=== PATIENT | female | born 1970 | race Caucasian/White ===

== ENCOUNTER → 2017-09-16 | Outpatient (CLI) | payer OTHER | LOC: OD 11:12 | PROVIDERS: ATTEND Otolaryngology | DX: H81.49 Vertigo of central origin, unspecified ear (principal) | CPT/HCPCS: 36415; 82785; 86003 ==

== ENCOUNTER → 2017-11-27 | Outpatient (CLI) | payer MEDICAID, OTHER ==
--- NOTE | 2017-11-28 09:46 | RADIOLOGY REPORT (SQ) ---
EXAM DESCRIPTION: MRI HEAD COMBO COMPLETED DATE/TIME: 11/27/2017 5:20 pm REASON FOR STUDY: SENSORINEURAL HEARING LOSS H90.3 SENSORINEURAL HEARING LOSS, BILATERAL vertigo, t innitus COMPARISON: None. TECHNIQUE: Multiplanar imaging includes noncontrasted T1, T2, FLAIR, diffusion with ADC map and post gadolinium contrast T1 sequences. Images stored on PACS. Additional thin section axial and coronal pre and post contrast T1, and axial thin-section T2 images through the internal auditory canals and inner ear structures were obtained. CONTRAST TYPE AND DOSE: 20 mL Dotarem. RENAL FUNCTION: None required. The patient is less than 50 years old. LIMITATIONS: Mild motion artifact on some of the postcontrast pulse sequences FINDINGS: ANATOMY: No developmental anomalies. Normal vascular flow voids. Pituitary fossa normal. CSF SPACES: Normal in size and contour. No hemorrhage. CEREBRUM: Sulci and gyri normal in size and contour. Normal white matter signal on FLAIR imaging. No evidence of hemorrhage, mass, or extraaxial fluid collection. No abnormal enhancement post contrast. POSTERIOR FOSSA: No signal alteration. No hemorrhage. No edema, masses, or mass effect. Internal auditory canals, cerebellopontine angles, mastoids normal. No abnormal enhancement post con trast. Right AICA loop in the internal auditory canal axial, best shown on thin-section T2 images 36 -40 DIFFUSION IMAGING: Negative for acute or subacute infarction. ORBITS: No masses. Globes normal. PARANASAL SINUSES: No fluid levels. Mucosa normal. OTHER: No other significant finding. IMPRESSION: NORMAL MRI OF THE BRAIN WITHOUT AND WITH INTRAVENOUS GADOLINIUM CONTRAST. EVIDENCE OF ACUTE STROKE: NO. TECHNICAL DOCUMENTATION: JOB ID: [id number] [employer]- All Rights Reserved Reading location - IP/workstation name: [email or web address]
== END ==
LOC: RAD 15:41
PROVIDERS: ATTEND Otolaryngology
DX: H90.3 Sensorineural hearing loss, bilateral (principal)
CPT/HCPCS: 70553; A9576

== ENCOUNTER 2018-01-29 19:34 | Emergency (ER) | payer OTHER ==
--- NOTE | 2018-01-29 21:25 | RADIOLOGY REPORT (SQ) ---
EXAM DESCRIPTION: XR HAND 3 OR MORE VIEWS COMPLETED DATE/TME: 01/29/2018 19:57 CLINICAL HISTORY: 47 years, Female, pain Findings: Bony alignment is anatomic. No fracture or dislocation. Mild soft tissue injury to second digit is noted. No radiopaque foreign body. IMPRESSION: No evidence for acute fracture or radiopaque foreign body.
[2018-01-29] MEDS ORDERED: LIDOCAINE 1%/EPINEPHRINE INJ 20 ML VIAL INJ ONE (21:57)
--- NOTE | 2018-01-29 22:19 | ER Document Report ---
ED General - General Chief Complaint: Laceration Stated Complaint: RIGHT HAND PAIN Time Seen by Provider: 01/29/18 21:30 Notes: Patient is a 48-year-old female, currently up-to-date on her tetanus who presents with a laceration to the ulnar side of the fifth digit of the right hand just above the level of the MCP. She states this occurred while she was cleaning out a dish. She states that it has been bleeding heavily since the laceration occurred. She notes a dull, throbbing, constant pain to the area. Nothing improves or worsens her symptoms. She is right-hand dominant. No history of similar injuries in the past. She has not seen her general doctor regarding today's concerns. TRAVEL OUTSIDE OF THE [place] IN LAST 30 DAYS: No - Related Data Allergies/Adverse Reactions: fluoxetine HCl [From Prozac] Allergy (Verified 03/24/15 09:55) Hives gabapentin [Gabapentin] Allergy (Verified 03/24/15 09:55) BURNING IN VEINS Past Medical History - General Information source: Patient - Social History Smoking Status: Never Smoker Frequency of alcohol use: None Drug Abuse: None Lives with: Spouse/Significant other Family History: Reviewed & Not Pertinent - Past Medical History Cardiac Medical History: Denies: Hx Coronary Artery Disease, Hx Heart Attack, Hx Hypertension Pulmonary Medical History: Reports: Hx Asthma, Hx Pneumonia - hx of 2009 Denies: Hx Bronchitis - hx of 03/10/15, Dr. Comer made aware, no new orders received, Hx COPD, Hx Tuberculosis Neurological Medical History: Denies: Hx Cerebrovascular Accident, Hx Seizures Endocrine Medical History: Reports: Hx Diabetes Mellitus Type 2 GI Medical History: Reports: Hx Gastroesophageal Reflux Disease Musculoskeletal Medical History: Reports Hx Arthritis - OSTEOARTHRITIS, GENERAL Past Surgical History: Reports: Hx Section - 2, Hx Tubal Ligation. Denies: Hx Pacemaker - Immunizations Hx Diphtheria, Pertussis, Tetanus Vaccination: Yes - <10 Hx Pneumococcal Vaccination: 02/06/12 Review of Systems - Review of Systems Notes: Constitutional: Negative for fever. Eyes: Negative for visual changes. ENT: Negative for facial injury Cardiovascular: Negative for chest injury. Respiratory: Negative for shortness of breath. Gastrointestinal: Negative for abdominal injury. Genitourinary: Negative for genital injury Musculoskeletal: Positive for right pinky injury Skin: Positive for laceration/abrasions. Neurological: Negative for head injury. Physical Exam - Vital signs Vitals: Temp Pulse Resp BP Pulse Ox 97.9 F 78 18 133/75 H 98 01/29/18 20:18 01/29/18 20:18 01/29/18 20:18 01/29/18 20:18 01/29/18 20:18 Interpretation: Normal Notes: PHYSICAL EXAMINATION: GENERAL: Appears uncomfortable but in no acute distress HEAD: Atraumatic, normocephalic. EYES: sclera anicteric, conjunctiva are normal. ENT: Moist mucous membranes. NECK: Normal range of motion LUNGS: Normal work of breathing HEART: 2+ radial pulses bilaterally EXTREMITIES: no pitting or edema. No cyanosis. NEUROLOGICAL: No focal neurological deficits. Moves all extremities spontaneously and on command. PSYCH: Highly anxious SKIN: Warm, Dry, normal turgor, 2.5 cm gaping laceration to the ulnar aspect of the right pinky just above the level of the MCP Course - Re-evaluation Re-evalutation: 01/29/18 22:13 Patient presents with a 2.5 cm laceration along the ulnar aspect of the fifth digit of the right hand sustained on a glass just prior to arrival. No evidence of tendinous injury. Full flexion extension at the MCP, DIP PIP including against resistance. Neurovascular intact. Patient tolerated closure of the wound after complete irrigation and debridement. At this time will discharge with return precautions and follow-up recommendations. Verbal discharge instructions given a the bedside and opportunity for questions given. Medication warnings reviewed. Patient is in agreement with this plan and has verbalized understanding of return precautions and the need for primary care follow-up in the next 1 week. - Vital Signs Vital signs: Temp Pulse Resp BP Pulse Ox 97.5 F 70 18 128/69 H 99 01/29/18 22:23 01/29/18 22:23 01/29/18 22:23 01/29/18 22:23 01/29/18 22:23 - Diagnostic Test Radiology reviewed: Image reviewed, Reports reviewed Radiology results interpreted by me: 01/30/18 04:19 Right hand x-ray: No acute fracture or retained foreign body Procedures - Laceration/Wound Repair Right 5th digit Wound length (cm): 2.5 Wound's Depth, Shape: Superficial Laceration pre-procedure: Sterile PPE donned Anesthetic type: 1% Lidocaine Volume Anesthetic (mLs): 1 Wound explored: Clean Irrigated w/ Saline (mLs): 500 Wound Debrided: Moderate Wound Repaired With: Sutures Suture Size/Type: 5:0, Prolene Number of Sutures: 4 Layer Closure?: No Post-procedure wound care: Sterile dressing applied Post-procedure NV exam normal: Yes Complications: No Discharge - Discharge Clinical Impression: Laceration of right little finger Qualifiers: Encounter type: initial encounter Damage to nail status: without damage Foreign body presence: without foreign body Qualified Code(s): S61.216A - Laceration without foreign body of right little finger without damage to nail, initial encounter Condition: Good Disposition: HOME, SELF-CARE Additional Instructions: Please return to your primary doctor, the ED, or an urgent care in 7 days for suture removal. Return immediately if you develop spreading redness around the wound, pus from the wound, worsening pain, or a fever of >100.4. Keep the area clean and dry. Wash gently with soap and water twice daily and cover with antibiotic ointment. Referrals: NISHA BURTON MD [Primary Care Provider] - Follow up as needed
[2018-01-29 22:24] VITALS: BP 128/69
== END 2018-01-29 22:29 | disposition home or self-care (01) ==
LOC: ER 19:34
DX: S61.216A Laceration without foreign body of right little finger without damage to nail, initial encounter (principal); W25.XXXA Contact with sharp glass, initial encounter; Y93.G1 Activity, food preparation and clean up; J45.909 Unspecified asthma, uncomplicated; E11.9 Type 2 diabetes mellitus without complications; Z88.8 Allergy status to other drugs, medicaments and biological substances; Z88.6 Allergy status to analgesic agent
CPT/HCPCS: 99283; 73130; 12001; J3490

== ENCOUNTER → 2018-04-27 | Outpatient (CLI) | payer OTHER ==
--- NOTE | 2018-04-27 16:19 | WOMENS IMAGING REPORT ---
EXAM DESCRIPTION: BILAT SCREENING MAMMO W/CAD COMPLETED DATE/TIME: 04/27/2018 11:10 am REASON FOR STUDY: Z12.31 SCREENING [id number] ENCNTR SCREEN MAMMOGRAM FOR MALIGNANT NEOPLASM OF BR E COMPARISON: 2012 -2013 TECHNIQUE: Standard craniocaudal and mediolateral oblique views of each breast recorded using [employer]ou[employer] l acquisition. LIMITATIONS: None. FINDINGS: RIGHT BREAST MASSES: No suspicious masses. CALCIFICATIONS: Calcifications lower outer quadrant about 7 cm deep to the nipple. ARCHITECTURAL DISTORTION: Asymmetry with architectural distortion 11 o'clock about 8 cm deep to the n ipple. DEVELOPING DENSITY: None. ASYMMETRY: See above. OTHER: No other significant findings. LEFT BREAST MASSES: No suspicious masses. CALCIFICATIONS: No new or suspicious calcifications. ARCHITECTURAL DISTORTION: None. DEVELOPING DENSITY: None. ASYMMETRY: None noted. OTHER: No other significant findings. Read with the assistance of CAD. .[facility] - R2 Cenova Version 1.3 .[facility] - R2 Cenova Version 1.3 .[facility] - R2 Cenova Version 2.4 .[facility] [place] R2 Cenova Version 2.4 .[facility] - R2 [place] [facility] Version 9.2 IMPRESSION: Abnormalities in the right breast for which true lateral, Mag compression views and pote ntial ultrasound recommended. BREAST DENSITY: b. There are scattered areas of fibroglandular density. BIRAD: 0 Incomplete: Needs Additional Imaging Evaluation and/or prior Mammograms for Comparison. RECOMMENDATION: RECOMMENDED FOLLOW-UP: See above. The patient will be contacted for additional imaging. COMMENT: The patient has been notified of the results by letter per SA requirements. Additional no tification policies are in place for contacting patient with suspicious or incomplete findings. Quality ID #225: The [employer] recommends an annual screening mammogram for women aged 40 years or over. This facility utilizes a reminder system to ensure that all patients receive reminder letters, and/or direct phone calls for appointments. This includes reminders for routine scr eening mammograms, diagnostic mammograms, or other Breast Imaging Interventions when appropriate. Th is patient will be placed in the appropriate reminder system. The [employer] (ACR) has developed recommendations for screening MRI of the breast s in certain patient populations, to be used in conjunction with mammography. Breast MRI surveillanc e may be appropriate for women with more than 20% lifetime risk of developing breast cancer as deter mined by genetic testing, significant family history of the disease, or history of mantle radiation f or Hodgkins Disease. ACR Practice Guidelines 2008. TECHNICAL DOCUMENTATION: FINDING NUMBER: (1) ASSESSMENT: (1) JOB ID: [id number] [employer]- All Rights Reserved Reading location - IP/workstation name: [email or web address]
== END ==
LOC: WI 09:25
PROVIDERS: ATTEND Internal Medicine
DX: Z12.31 Encounter for screening mammogram for malignant neoplasm of breast (principal); N64.89 Other specified disorders of breast
CPT/HCPCS: 77067

== ENCOUNTER → 2018-05-05 | Outpatient (CLI) | payer OTHER ==
--- NOTE | 2018-05-05 09:44 | WOMENS IMAGING REPORT ---
EXAM DESCRIPTION: RIGHT DIAGNOSTIC MAMMO W/CAD; U/S BREAST UNILAT LIMITED COMPLETED DATE/TIME: 05/05/2018 8:37 am; 05/05/2018 9:19 am REASON FOR STUDY: R92.2 RIGHT ASYMMETRY; R92.2 RIGHT BREAST R92.2 INCONCLUSIVE MAMMOGRAM COMPARISON: 04/27/2018 TECHNIQUE: True lateral and Mag compression views. LIMITATIONS: None. FINDINGS: BREAST: right Irregular mass at 11 o'clock with associated architectural distortion. Calcifications lower outer qu adrant have some pleomorphic features and no definite benign features. Ultrasound of the right breast demonstrates hypoechoic 1.5 cm mass with posterior shadowing correspon d to the mammographic finding. 1 cm right axillary node with minimal fatty hilum. IMPRESSION: Suspicious mass and axillary lymph node. Suspicious calcifications in different quadran t. BREAST DENSITY: b. There are scattered areas of fibroglandular density. BIRAD: 5 Highly suggestive of malignancy. Appropriate action should be taken. RECOMMENDATION: RECOMMENDED FOLLOW UP: Birads 5: Biopsy should be performed in the absence of clinic al contraindication. SPECIFIC INTERVENTION/IMAGING/CONSULTATION RECOMMENDED:The suspicious finding(s) amenable to stereo-t actic-guided vacuum assisted core biopsy of calcifications and ultrasound guided core biopsy and clip placement. COMMUNICATION:The imaging findings were not discussed with the patient. Her referring provider has be en notified of the findings. COMMENT: The patient has been notified of the results by letter per SA requirements. Additional no tification policies are in place for contacting patient with suspicious or incomplete findings. Quality ID #225: The [employer] recommends an annual screening mammogram for women aged 40 years or over. This facility utilizes a reminder system to ensure that all patients receive reminder letters, and/or direct phone calls for appointments. This includes reminders for routine scr eening mammograms, diagnostic mammograms, or other Breast Imaging Interventions when appropriate. Th is patient will be placed in the appropriate reminder system. The [employer] (ACR) has developed recommendations for screening MRI of the breast s in certain patient populations, to be used in conjunction with mammography. Breast MRI surveillanc e may be appropriate for women with more than 20% lifetime risk of developing breast cancer as deter mined by genetic testing, significant family history of the disease, or history of mantle radiation f or Hodgkins Disease. ACR Practice Guidelines 2008. TECHNICAL DOCUMENTATION: FINDING NUMBER: (1) ASSESSMENT: (1) JOB ID: [id number] [employer]- All Rights Reserved Reading location - IP/workstation name: [email or web address]
== END ==
LOC: WI 08:03
PROVIDERS: ATTEND Internal Medicine
DX: N63.13 Unspecified lump in the right breast, lower outer quadrant (principal)
CPT/HCPCS: 76642

== ENCOUNTER → 2018-05-24 | Day surgery (SDC) | payer OTHER ==
[~2018-05-24] MED LIST: LIDOCAINE 1% INJ-PF (10 MG/ML) 30 ML SDV ONE; LIDOCAINE 1%/EPINEPHRINE INJ 20 ML VIAL ONE
--- NOTE | 2018-05-26 09:06 | RADIOLOGY REPORT (SQ) ---
EXAM DESCRIPTION: STEREO BREAST BX; RIGHT DIG DX MAMMO NO CHG COMPLETED DATE/TIME: 05/24/2018 10:23 am; 05/24/2018 11:25 am REASON FOR STUDY: D48.61 NEOPLASM OF UNCERTAIN BEHAVIOR OF RIGHT BREAST; D46.61 S/P US AND STEREO BX RIGHT BREAST FOR CLIP PLACEMENT D48.61 NEOPLASM OF UNCERTAIN BEHAVIOR OF RIGHT BREAST COMPARISON: Prior mammograms 04/27/2018, 05/05/2018 TECHNIQUE: Vacuum-assisted stereotactic-guided biopsy of the calcifications of concern in the right breast 6 o'clock position. Serial progress stereotactic and single digital images acquired. PROCEDURE: The procedure was discussed with the patient, including possible complications such as bleeding, infection, nondiagnostic sample or possible findings such as atypical ductal hyperplasia wh ich would require additional surgery. Possible clip placement was explained. The patient agreed t o the procedure. The patient was placed prone on the stereotactic table. The lesion in the breast was localized ster eotactically. The skin of the breast was prepped in sterile fashion. Superficial and deep local an esthesia was provided. A small incision was made in the skin and the biopsy probe was advanced to t he target. Using the vacuum-assisted core biopsy device, multiple core specimens were obtained. Continuous low dose infusion of local anesthesia was used during the procedure. A specimen radiograph was obtained. The radiograph demonstrated calcifications of concern in the bio psy tissue. Using [id number]-[id number] technique a pellet clip was deployed at the biopsy site. Mammographic image confirmed presence of the clip. The probe was then removed and hemostasis obtained with manua l compression. A compression bandage was applied. Postoperative instructions were explained to th e patient. POST-PROCEDURE TWO VIEW DIGITAL MAMMOGRAM: An additional two view mammogram was recorded in the [facility] mammographic suite. Pellet is present at the stereotactic biopsy site. Ribbon shaped clips are present at the sonographically biopsied nodule and right axillary lymph node dictated separately. LIMITATIONS: None. FINDINGS: PATHOLOGY: Ductal carcinoma in situ CONCORDANT: Yes. POST PROCEDURE MAMMOGRAMS FOR MARKER PLACEMENT: Yes IMPRESSION: SUCCESSFUL STEREOTACTIC-GUIDED BIOPSY OF THE LESION IN THE RIGHT BREAST. BIOPSY RESULT S ARE CONCORDANT WITH IMAGING FINDINGS. BI-RADS 6 known malignancy, appropriate action should be taken FOLLOW-UP: These results were discussed by me with the patient 0800 hours 05/26/2018. She understands this is a malignant diagnosis, and that she requires further therapy NOTIFICATION: THE PATIENT HAS BEEN PERSONALLY NOTIFIED OF THE RESULTS BY THE BREAST INTERVENTIONAL TE NARAYAN. COMMENT: Patient medication list reviewed: Yes- Quality ID# [id number]:Eligible professional attests to doc umenting in the medical record they obtained, updated, or reviewed the patient's current medications. TECHNICAL DOCUMENTATION: JOB ID: [id number] [employer] All Rights Reserved Reading location - IP/workstation name: [email or web address]
--- NOTE | 2018-05-26 09:11 | WOMENS IMAGING REPORT ---
EXAM DESCRIPTION: U/S BREAST BX; U/S BREAST BX EACH ADDT'L COMPLETED DATE/TIME: 05/24/2018 11:32 am REASON FOR STUDY: D46.61 NEOPLASM OF UNCERTAIN BEHAVIOR OF RIGHT BREAST; D46.61 D48.61 NEOPLASM OF UNCERTAIN BEHAVIOR OF RIGHT BREAST COMPARISON: Prior mammograms and ultrasound 04/27/2018, 05/05/2018 TECHNIQUE: The procedure was discussed with the patient and the patient agreed to proceed. The fransico ent has a malignant appearing right axillary lymph node and a mass at the 10 to 11 o'clock position r ight breast. Both of these areas were targeted for biopsy. Right axilla: The patient was scanned and the area of interest in the right axilla 15 cm from the nipple of the rig ht breast was localized. This correlates with the area of concern on prior imaging studies. This are a was targeted for ultrasound-guided core biopsy. After sterile skin prep and 2.5 mL local lidocaine 1% for skin and deep tissue anesthesia, a 14 gauge coaxial core biopsy needle was used to obtain several cores of tissue from the lesion. Under ultras ound guidance, a ribbon clip was placed in the areas sampled. Right breast 10 to 11 o'clock position: The patient was scanned and the area of interest in the right breast 10 to 11 o'clock position, 5 cm from the nipple of the right breast was localized. This correlates with the area of concern on prior imaging studies. This area was targeted for ultrasound-guided core biopsy. After sterile skin prep and 2.5 mL local lidocaine 1% for skin and deep tissue anesthesia, a 14 gauge coaxial core biopsy needle was used to obtain several cores of tissue from the lesion. Under ultras ound guidance, a ribbon clip was placed in the areas sampled. There were no immediate post-procedure complications. MAMMOGRAM: Post-procedure two view mammogram was acquired in the digital mammogram suite. The clips w ere in the expected location. No significant hematoma. Pathology yields a diagnosis of invasive ductal carcinoma in both the right axillary lymph node and m ass at the 10 to 11 o'clock position right breast. Pathology is concordant. LIMITATIONS: None. FINDINGS: Ultrasound guided breast biopsy as described above. POST PROCEDURE MAMMOGRAMS FOR MARKER PLACEMENT: Yes IMPRESSION: ULTRASOUND-GUIDED CORE BIOPSY OF THE RIGHT AXILLARY LYMPH NODE AND RIGHT BREAST MASS YIE LDS A DIAGNOSIS OF INVASIVE DUCTAL CARCINOMA BI-RADS 6, KNOWN MALIGNANCY. APPROPRIATE ACTION SHOULD BE TAKEN COMMENT: COMMUNICATION: THIS RESULT WAS DISCUSSED WITH THE PATIENT RIB 0800 HOURS, 05/26/2018. SHE UN DERSTANDS THAT THIS IS A MALIGNANT DIAGNOSIS, AND THAT SHE REQUIRES FURTHER THERAPY. Patient medication list reviewed: Yes- Quality ID# [id number]:Eligible professional attests to documenting i n the medical record they obtained, updated, or reviewed the patient's current medications. TECHNICAL DOCUMENTATION: JOB ID: [id number] [employer]- All Rights Reserved Reading location - IP/workstation name: [email or web address]
== END ==
LOC: RAD 08:23
PROVIDERS: ATTEND Internal Medicine
DX: D05.11 Intraductal carcinoma in situ of right breast (principal); C77.3 Secondary and unspecified malignant neoplasm of axilla and upper limb lymph nodes
CPT/HCPCS: 88342 ×2; 88341 ×2; 88305 ×2; 19081; 19083; 19084; J3490 ×2

== ENCOUNTER → 2018-06-07 | Outpatient (CLI) | payer MEDICAID, OTHER ==
--- NOTE | 2018-06-07 09:15 | RADIOLOGY REPORT (SQ) ---
EXAM DESCRIPTION: CT CHEST WITH COMPLETED DATE/TIME: 06/07/2018 8:45 am REASON FOR STUDY: MALIG NEOPLM OF UPPER-INNER QUADRANT OF RIGHT FEMALE BREAST C50.211 MALIG NEOPLM OF UPPER-INNER QUADRANT OF RIGHT FEMALE COMPARISON: None. TECHNIQUE: CT scan of the chest performed using helical scanning technique with dynamic intravenous contrast injection. Images reviewed with lung, soft tissue and bone windows. Reconstructed coronal and sagittal MPR and MIP images reviewed. All images stored on PACS. All CT scanners at this facility use dose modulation, iterative reconstruction, and/or weight based d osing when appropriate to reduce radiation dose to as low as reasonably achievable (ALARA). [facility]: Dose Right [facility]: CareDose [facility]: Dose Right [facility]: Teradose 4D [facility]: [place] CONTRAST TYPE AND DOSE: 95 cc Omnipaque 350 RENAL FUNCTION: Creatinine 1.0 RADIATION DOSE: . LIMITATIONS: Subcutaneous tissues partially excluded by collimation secondary to body habitus. FINDINGS: LUNGS AND PLEURA: There are multiple small vague areas of ground-glass attenuation through out the right upper, lower and left lower lobes, largest in the right lower lobe measuring 8 mm. The se are nonspecific and likely infectious/inflammatory. No discrete solid nodules. No dense consolid ation. No pleural effusion or pneumothorax. HILAR AND MEDIASTINAL STRUCTURES: No identified masses or abnormal nodes. HEART AND VASCULAR STRUCTURES: No aneurysm or dissection. No central pulmonary emboli. No pericardi al effusion. HARDWARE: None in the chest. UPPER ABDOMEN: See separate report of the CT of the abdomen. THYROID AND OTHER SOFT TISSUES: No masses. No adenopathy. BONES: No significant finding. OTHER: No other significant finding. IMPRESSION: 1. No definite evidence of metastatic disease within the thorax. 2. Subtle small areas of ground-glass attenuation in both lungs, likely infectious/inflammatory. TECHNICAL DOCUMENTATION: JOB ID: [id number] Quality ID # [id number]: Final reports with documentation of one or more dose reduction techniques (e.g., Au tomated exposure control, adjustment of the mA and/or kV according to patient size, use of iterative reconstruction technique) 2010 [employer]- All Rights Reserved Reading location - IP/workstation name: [email or web address]
--- NOTE | 2018-06-07 09:20 | RADIOLOGY REPORT (SQ) ---
EXAM DESCRIPTION: CT ABD/PELVIS WITH IV ONLY COMPLETED DATE/TIME: 06/07/2018 8:45 am REASON FOR STUDY: MALIG NEOPLM OF UPPER-INNER QUADRANT OF RIGHT FEMALE BREAST C50.211 MALIG NEOPLM OF UPPER-INNER QUADRANT OF RIGHT FEMALE COMPARISON: 11/30/2015 TECHNIQUE: CT scan of the abdomen and pelvis performed using helical scanning technique with dynamic intravenous contrast injection. No oral contrast. Images reviewed with lung, soft tissue, and bone windows. Reconstructed coronal and sagittal MPR images reviewed. Delayed images for evaluation of the urinary system also acquired. All images stored on PACS. All CT scanners at this facility use dose modulation, iterative reconstruction, and/or weight based d osing when appropriate to reduce radiation dose to as low as reasonably achievable (ALARA). [facility]: Dose Right [facility]: CareDose [facility]: Dose Right [facility]: Teradose 4D [facility]: Uptake CONTRAST TYPE AND DOSE: contrast/concentration: Isovue 350.00 mg/ml; Total Contrast Delivered: 95.0 ml; Total Saline Delivered: 71.0 ml 95 cc Omnipaque 350 RENAL FUNCTION: Creatinine 1.0 RADIATION DOSE: CT Rad equipment meets quality standard of care and radiation dose reduction techniq ues were employed. CTDIvol: 23.5 - 30.6 mGy. DLP: 4189 mGy-cm.. LIMITATIONS: None. FINDINGS: LOWER CHEST: See separate report of the CT of the chest. LIVER: Scattered calcified granuloma. No discrete liver lesions. No intrahepatic ductal dilation. Likely hepatic steatosis. SPLEEN: Enlarged measuring 15 cm with multiple scattered calcified granuloma. PANCREAS: No masses. No significant calcifications. No adjacent inflammation or peripancreatic fluid collections. Pancreatic duct not dilated. GALLBLADDER: Surgically absent. ADRENAL GLANDS: No significant masses or asymmetry. RIGHT KIDNEY AND URETER: No solid masses. No significant calcifications. No hydronephrosis or hyd roureter. LEFT KIDNEY AND URETER: No solid masses. No significant calcifications. No hydronephrosis or hydr oureter. AORTA AND VESSELS: No aneurysm. No dissection. Renal arteries, SMA, celiac without stenosis. RETROPERITONEUM: No retroperitoneal adenopathy, hemorrhage or masses. BOWEL AND PERITONEAL CAVITY: No masses or inflammatory changes. No free fluid or peritoneal masses. APPENDIX: Normal. PELVIS: No mass. No free fluid. Normal bladder. ABDOMINAL WALL: No masses. No hernias. BONES: No significant or acute findings. Bone island in the T12 vertebral body and left ilium, stabl e. OTHER: No other significant finding. IMPRESSION: 1. No evidence of metastatic disease within the abdomen or pelvis. 2. Hepatomegaly with likely hepatic steatosis. Splenomegaly. 3. Evidence of prior granulomatous disease. TECHNICAL DOCUMENTATION: JOB ID: [id number] Quality ID # [id number]: Final reports with documentation of one or more dose reduction techniques (e.g., Au tomated exposure control, adjustment of the mA and/or kV according to patient size, use of iterative reconstruction technique) 2010 [employer]- All Rights Reserved Reading location - IP/workstation name: [email or web address]
--- NOTE | 2018-06-07 13:56 | RADIOLOGY REPORT (SQ) ---
EXAM DESCRIPTION: NM WHOLE BODY BONE SCAN COMPLETED DATE/TIME: 06/07/2018 1:14 pm REASON FOR STUDY: MALIG NEOPLM OF UPPER-INNER QUADRANT OF RIGHT FEMALE BREAST C50.211 MALIG NEOPLM OF UPPER-INNER QUADRANT OF RIGHT FEMALE COMPARISON: Chest, abdomen and pelvis CT from same date. RADIONUCLIDE AND DOSE: 22.1 millicuries Tc99m MDP. The route of agent administration: Intravenous. ADDITIONAL DRUGS AND DOSES: None. TECHNIQUE: Routine delayed images at 3 hour post radionuclide injection acquired of the bony skeleto n including anterior and posterior whole-body projections and additional focused images as needed. LIMITATIONS: None. FINDINGS: BONES: No suspicious foci. Polyarthropathy, likely degenerative disease. Includes should ers, AC joints, bilateral knees, feet and ankles. Also subtle spine heterogeneity, likely degenerati ve. KIDNEYS: Symmetric excretion without obstruction. OTHER: No other significant finding. IMPRESSION: No suspicious bone scan abnormalities to suggest osseous metastatic disease. COMMENT: Quality measure 147: Current bone scan is compared with any available plain radiographs, p rior bone scans, and CT/MRI. TECHNICAL DOCUMENTATION: JOB ID: [id number] [employer]- All Rights Reserved Reading location - IP/workstation name: [email or web address]
== END ==
LOC: RAD 08:10
PROVIDERS: ATTEND Internal Medicine
DX: C50.211 Malignant neoplasm of upper-inner quadrant of right female breast (principal)
CPT/HCPCS: 82565; 78306; 71260; 74177; A9561; Q9969

== ENCOUNTER → 2018-06-09 | Outpatient (CLI) | payer OTHER ==
--- NOTE | 2018-06-09 13:06 | RADIOLOGY REPORT (SQ) ---
EXAM DESCRIPTION: CHEST PA/LATERAL COMPLETED DATE/TIME: 06/09/2018 12:56 pm REASON FOR STUDY: PRE-OP COMPARISON: 09/11/2015 EXAM PARAMETERS: NUMBER OF VIEWS: two views TECHNIQUE: Digital Frontal and Lateral radiographic views of the chest acquired. RADIATION DOSE: NA LIMITATIONS: none FINDINGS: LUNGS AND PLEURA: No opacities, masses or pneumothorax. No pleural effusion. MEDIASTINUM AND HILAR STRUCTURES: No masses or contour abnormalities. HEART AND VASCULAR STRUCTURES: Heart normal size. No evidence for failure. BONES: No acute findings. HARDWARE: None in the chest. OTHER: No other significant finding. IMPRESSION: NO SIGNIFICANT RADIOGRAPHIC FINDING IN THE CHEST. TECHNICAL DOCUMENTATION: JOB ID: [id number] [employer]- All Rights Reserved Reading location - IP/workstation name: [email or web address]
[2018-06-09 13:32] LABS: HEMATOCRIT 38.7 % (36.0-47.0); HEMOGLOBIN 13.6 g/dL (12.0-15.5); MEAN CORPUSCULAR HEMOGLOBIN 31.4 pg (27.0-33.4); MEAN CORPUSCULAR HGB CONC 35.1 g/dL (32.0-36.0); MEAN CORPUSCULAR VOLUME 89 fl (80-97); PLATELET COUNT 202 10^3/uL (150-450); RED BLOOD COUNT 4.33 10^6/uL (3.72-5.28); RED CELL DISTRIBUTION WIDTH 13.8 % (11.5-14.0); WHITE BLOOD COUNT 6.6 10^3/uL (4.0-10.5)
[2018-06-09 13:52] LABS: ANION GAP 9 (5-19); BLOOD UREA NITROGEN 21 mg/dL (7-20); CARBON DIOXIDE 30 mmol/L (22-30); CHLORIDE 101 mmol/L (98-107); GLUCOSE 124 mg/dL (75-110); POTASSIUM 4.5 mmol/L (3.6-5.0); SODIUM 140.4 mmol/L (137-145)
--- NOTE | 2018-06-09 23:03 | EKG REPORT ---
SEVERITY:- OTHERWISE NORMAL ECG - SINUS RHYTHM LOW VOLTAGE IN FRONTAL LEADS : Confirmed by: Janna Burdick 09-Jun-2018 23:02:31
== END ==
LOC: OD 12:23
PROVIDERS: ATTEND Surgery
DX: Z01.818 Encounter for other preprocedural examination (principal); C50.911 Malignant neoplasm of unspecified site of right female breast; E61.1 Iron deficiency; J45.909 Unspecified asthma, uncomplicated; E11.9 Type 2 diabetes mellitus without complications; M19.90 Unspecified osteoarthritis, unspecified site; E78.5 Hyperlipidemia, unspecified; I10 Essential (primary) hypertension; E66.9 Obesity, unspecified; G47.33 Obstructive sleep apnea (adult) (pediatric); K21.9 Gastro-esophageal reflux disease without esophagitis; G62.9 Polyneuropathy, unspecified; H26.9 Unspecified cataract
CPT/HCPCS: 36415; 71046; 80048; 85027; 93005; 93010

== ENCOUNTER 2018-06-23 10:22 | Day surgery (SDC) | payer OTHER ==
[~2018-06-23 10:22] MED LIST changes: +CEFAZOLIN 2 GM/D5W RTU 2 GM/50 ML RTUPB IV PRN; +IBUPROFEN 800 MG in NORMAL SALINE 250 ML IV PRN; -LIDOCAINE 1% INJ-PF (10 MG/ML) 30 ML SDV ONE; -LIDOCAINE 1%/EPINEPHRINE INJ 20 ML VIAL ONE; +LIDOCAINE 4% TRANSPARENT DRESSING 5 GM KIT TP PRN
[2018-06-23] MEDS ORDERED: CEFAZOLIN 2 GM/D5W RTU 2 GM/50 ML RTUPB IV ONE (10:25)
[2018-06-23] MEDS ORDERED: LIDOCAINE 4% TRANSPARENT DRESSING 5 GM KIT ONE (10:26)
[2018-06-23] MEDS ORDERED: MIDAZOLAM 2 MG/2 ML INJ ONE ×2 (12:33→13:45)
[2018-06-23] MEDS ORDERED: FAMOTIDINE INJ/PF 20 MG/2 ML SDV IV ONE (12:33)
[2018-06-23] MEDS ORDERED: METOCLOPRAMIDE HCL INJ/PF 10 MG/2 ML SDV ONE (12:34)
[2018-06-23] MEDS ORDERED: IPRATROPIUM/ALBUTEROL 0.5-2.5 MG/3 ML AMPUL NEB ONE (12:39)
[2018-06-23] MEDS ORDERED: RINGERS SOLUTION,LACTATED 1,000 ML IV ONE (13:00)
--- NOTE | 2018-06-23 13:09 | RADIOLOGY REPORT (SQ) ---
EXAM DESCRIPTION: NM LYMPHATICS/LYMPH GLANDS COMPLETED DATE/TIME: 06/23/2018 12:29 pm REASON FOR STUDY: MALIGNANT NEOPLASM OF UNSPECIFIED SITE OF RIGHT FEMALE BREAST C50.911 MALIGNANT N EOPLASM OF UNSP SITE OF RIGHT FEMALE [place] COMPARISON: Ultrasound-guided breast biopsy 05/24/2018 CT chest abdomen pelvis 06/07/2018 Whole-body bone scan 06/07/2018 RADIONUCLIDE AND DOSE: 587 microcuries TC-99m tilmanocept - [employer]. The route of agent administration: Subcutaneous in the skin. TECHNIQUE: The skin of the right breast was prepped in sterile fashion. The radiopharmaceutical was administered in equally divided doses in the periareolar breast. LIMITATIONS: None. FINDINGS: Images demonstrate activity at the injection site. IMPRESSION: ADMINISTRATION OF RADIOPHARMACEUTICAL FOR SENTINEL LYMPH NODE EVALUATION. TECHNICAL DOCUMENTATION: JOB ID: [id number] [employer]- All Rights Reserved Reading location - IP/workstation name: [email or web address]
[2018-06-23] MEDS ORDERED: LIDOCAINE 1% INJ-PF (10 MG/ML) 30 ML SDV ONE (13:16)
[2018-06-23] MEDS ORDERED: METHYLENE BLUE 50 MG/10 ML AMPULE ONE (13:16)
[2018-06-23] MEDS ORDERED: BUPIVACAINE HCL 0.25 % INJ/PF (2.5 MG/1 ML) 30 ML VIAL ONE (13:16)
[2018-06-23] MEDS ORDERED: FENTANYL CITRATE INJ/PF 100 MCG/2 ML AMPUL ONE ×2 (13:45→18:06)
[2018-06-23] MEDS ORDERED: DEXAMETHASONE SOD PHOSPHATE INJ 4 MG/1 ML VIAL ONE (13:45)
[2018-06-23] MEDS ORDERED: ONDANSETRON HCL INJ/PF 4 MG/2 ML SDV ONE (13:46)
[2018-06-23] MEDS ORDERED: PROPOFOL INJ 200 MG/20 ML VIAL IV ONE (13:46)
[2018-06-23] MEDS ORDERED: PROMETHAZINE HCL INJ 25 MG/1 ML VIAL IV PRN ×2 (14:20)
[2018-06-23] MEDS ORDERED: FENTANYL CITRATE INJ/PF 100 MCG/2 ML AMPUL IV PRN ×2 (14:20)
[2018-06-23] MEDS ORDERED: DIPHENHYDRAMINE HCL 50 MG/ML VIAL IV PRN (14:20)
[2018-06-23] MEDS ORDERED: MEPERIDINE HCL/PF INJ 25 MG/1 ML DISP.SYRIN IV PRN (14:20)
[2018-06-23] MEDS ORDERED: MORPHINE SULFATE 10 MG/ML INJ IV PRN ×2 (14:20→17:27)
[2018-06-23] MEDS ORDERED: ACETAMINOPHEN 1,000 MG/100 ML RTUPB IV ONE (14:58)
[2018-06-23] MEDS ORDERED: HYDROMORPHONE HCL INJ/PF 2 MG/ML AMPULE ONE (14:58)
[2018-06-23] MEDS ORDERED: ROCURONIUM BROMIDE INJ 50 MG/5 ML VIAL IV ONE (15:20)
[2018-06-23] MEDS ORDERED: GLYCOPYRROLATE 1 MG/5 ML SYRINGE ONE (15:20)
[2018-06-23] MEDS ORDERED: NEOSTIGMINE METHYLSULFATE 10 MG/10 ML VIAL ONE (15:20)
--- NOTE | 2018-06-23 15:45 | RADIOLOGY REPORT (SQ) ---
EXAM DESCRIPTION: FLUORO/CV PLACEMENT COMPLETED DATE/TIME: 06/23/2018 3:22 pm REASON FOR STUDY: PORTACATH PLCMT LEFT SIDE ASST WITH FLUORO IN OR C50.911 MALIGNANT NEOPLASM OF UN SP SITE OF RIGHT FEMALE [place] COMPARISON: Two-view chest 06/09/2018 FLUOROSCOPY TIME: 0.8 minutes 4 digital C-arm images saved to PACS. TECHNIQUE: Intra-operative images acquired during surgical procedure to evaluate progress. NUMBER OF IMAGES: 4 digital C-arm images LIMITATIONS: None. FINDINGS: Intra procedural imaging and fluoro during left-sided central line placement in the OR by Dr. Allred. Please please see the operative report for further details. IMPRESSION: IMAGE(S) OBTAINED DURING PROCEDURE. COMMENT: Quality ID 145: Final reports for procedures using fluoroscopy that document radiation exp osure indices, or exposure time and number of fluorographic images (if radiation exposure indices are not available) Please consult full operative report of the attending physician for description of the procedure. TECHNICAL DOCUMENTATION: JOB ID: [id number] [employer]- All Rights Reserved Reading location - IP/workstation name: [email or web address]
[2018-06-23] MEDS ORDERED: PREGABALIN 100 MG CAPSULE PO SCH (18:00)
[2018-06-23] MEDS ORDERED: KETOROLAC TROMETHAMINE INJ/PF 30 MG/1 ML SDV ONE (18:06)
[2018-06-23] MEDS: FENTANYL CITRATE INJ/PF 100 MCG/2 ML AMPUL IV PRN ×2 (18:08→18:26)
[2018-06-23] MEDS: METFORMIN HCL 500 MG TABLET PO SCH (20:11)
[2018-06-23] MEDS: DOCUSATE SODIUM 100 MG CAPSULE PO SCH (20:11)
[2018-06-23] MEDS: OXYCODONE-ACETAMINOPHEN 5-325 MG TABLET PO PRN (20:12)
[2018-06-23] MEDS: ONDANSETRON HCL INJ/PF 4 MG/2 ML SDV IV PRN (20:14)
[2018-06-23] MEDS ORDERED: ASCORBIC ACID 500 MG TABLET PO SCH (22:00)
[2018-06-23] MEDS ORDERED: ALBUTEROL SULFATE HFA (90 MCG/PUFF) 200 PUFF/8.5 GM MDI IH PRN (23:00)
[2018-06-24] MEDS: OXYCODONE-ACETAMINOPHEN 5-325 MG TABLET PO PRN ×3 (02:34→10:40)
[2018-06-24] MEDS: ONDANSETRON HCL INJ/PF 4 MG/2 ML SDV IV PRN ×2 (02:34→06:34)
[2018-06-24] MEDS ORDERED: PANTOPRAZOLE SODIUM 20 MG TABLET.DR PO SCH (06:00)
[2018-06-24] MEDS ORDERED: ALBUTEROL SULFATE HFA (90 MCG/PUFF) 200 PUFF/8.5 GM MDI IH PRN (07:53)
[2018-06-24] MEDS ORDERED: PREGABALIN 100 MG CAPSULE PO SCH (08:00)
[2018-06-24 08:34] VITALS: BP 126/44
[2018-06-24] MEDS: METFORMIN HCL 500 MG TABLET PO SCH (09:25)
[2018-06-24] MEDS: DOCUSATE SODIUM 100 MG CAPSULE PO SCH (09:25)
--- NOTE | 2018-06-24 09:48 | PDOC DISCHARGE SUMMARY ---
General - Admit/Disc Date/PCP Admission Date/Primary Care Provider: NISHA BURTON Discharge Date: 06/24/18 - Discharge Diagnosis (1) Breast cancer, right Is this a current diagnosis for this admission?: Yes - Additional Information Discharge Diet: As Tolerated Discharge Activity: Balance Activity w/Rest Home Medications: Metformin HCl [Glucophage 500 Mg Tablet] 1,000 mg PO BID 01/30/12 Omeprazole [Prilosec 40 mg Capsule] 20 mg PO BID 01/30/12 Albuterol Sulfate [Proair HFA Inhalation Aerosol 8.5 gm MDI] 2 puff IH Q3HP PRN #1 mdi 06/06/13 Ascorbic Acid [Vitamin C 500 mg Tablet] 1,000 mg PO QHS 06/16/18 Cyanocobalamin (Vitamin B-12) [Vitamin B-12] 1,000 mcg PO QAM 06/16/18 Ergocalciferol (Vitamin D2) [Vitamin D] 4,000 unit PO DAILY 06/16/18 Hemp Oil PO QID 06/16/18 Magnesium 250 mg PO BID 06/16/18 Multivitamin [Multivitamins] 1 each PO DAILY 06/16/18 Ondansetron HCl [Zofran 4 mg Tablet] 1 - 2 tab PO Q4H PRN 06/16/18 Oxycodone HCl/Acetaminophen [Percocet 5-325 mg Tablet] 1 tab PO TID 06/16/18 Pregabalin [Lyrica 100 Mg Capsule] 50 mg PO QAM 06/16/18 Pregabalin [Lyrica 100 Mg Capsule] 100 mg PO QPM 06/16/18 History of Present Illness History of Present Illness: CRISTINO BLACK is a 48 year old female admitted for definitive surgical resection of her right breast cancer. The patient underwent mastectomy with sentinel lymph node biopsy. The patient was taken to the floor in stable condition. Hospital Course Hospital Course: On postoperative day #1, the patient was ambulating, tolerating a diet, and her pain was controlled with oral pain medications. At this time it was felt that she had reached maximal hospital benefit, and was fit for discharge. Physical Exam Vital Signs: Temp Pulse Resp BP Pulse Ox 97.8 F 79 18 126/44 H 96 06/24/18 08:24 06/24/18 08:24 06/24/18 08:24 06/24/18 08:24 06/24/18 08:43 Pulse Oximeter Continuous Start: 06/23/18 19:33 Freq: Status: Active Protocol: Document 06/24/18 08:43 DBE (Rec: 06/24/18 08:57 DBE [email or web address]) Pulse Oximetry Assessment Oxygen Saturation (92-100) 96 Oxygen Delivery Method Room Air Fraction of Inspired Oxygen (FIO2) 21 Equipment Usage Equipment in Use Continuous Pulse Oximeter 24 Hour Charge Charge Now Continuous SpO2 Machine # 13 Intake & Output 06/23/18 06/24/18 06/25/18 06:59 06:59 06:59 Intake Total 2250 Output Total 535 Balance 1715 Weight 49.6 kg Results Impressions: Guidance Fluoroscopy 06/23/18 00:00 IMPRESSION: IMAGE(S) OBTAINED DURING PROCEDURE. Lymph Scan Nuclear Medicine 06/23/18 00:00 IMPRESSION: ADMINISTRATION OF RADIOPHARMACEUTICAL FOR SENTINEL LYMPH NODE EVALUATION. Qualifiers - * PATIENT BEING DISCHARGED WITH ANY OF THE FOLLOWING DIAGNOSIS: No Plan Discharge Plan: Discharge home. Diet as tolerated. Activity: Nonstrenuous. Follow-up with me next week. [place] 10/325 mg p.o. every 6 hours as needed for pain. Okay to shower in 48 hours. Wear Tunde wrap at all times, unless showering. Empty ERYN drains every day and record output. Time Spent: Less than 30 Minutes
[2018-06-24] MEDS ORDERED: MAGNESIUM OXIDE 400 MG TABLET PO SCH (10:00)
--- NOTE | 2018-06-24 10:15 | Operative Report ---
Nonrecallable Operative Report DATE OF SURGERY: 06/23/18 PREOPERATIVE DIAGNOSIS: Right breast cancer, multifocal POSTOPERATIVE DIAGNOSIS: Same as above OPERATION: 1. Ultrasound-guided central venous puncture. 2. Left internal jugular vein Mediport placement. 3. Right simple mastectomy. 4. Right axillary sentinel lymph node biopsy. SURGEON: MALDONADO YING 1ST AIRLINE DISPATCHER: MOUSTAPHA CELAYA ANESTHESIA: GA TISSUE REMOVED OR ALTERED: 1. Right mastectomy. 2. Jackson lymph node #1. 3. Jackson lymph node #2. 4. Additional axillary lymph node. COMPLICATIONS: None apparent ESTIMATED BLOOD LOSS: 300 cc PROCEDURE: Drains/implants: 1. 15 Ethiopian round Nicolas drains x2. 2. Left internal jugular vein Mediport Procedure in detail: After informed consent was obtained, the patient was brought to the operating room and laid in the Trendelenburg position. The area of the neck and chest were prepped and draped in a normal sterile fashion. An ultrasound was used to identify the left internal jugular vein. The left IJ was compressible with normal flow. The vein was then accessed using the supplied needle under direct ultrasonic guidance. The syringe returned dark, venous, nonpulsatile blood. The wire was then inserted into the vein easily. The wire was confirmed to be within the lumen of the vein using both ultrasound as well as fluoroscopy. Next a separate incision was created on the left chest to accommodate the Mediport hub. The catheter was tunneled from the Mediport hub site to the needle insertion site. Next the dilator and breakaway sheath were inserted over the wire, under direct fluoroscopic guidance. The wire and dilator were removed, leaving the sheath within the SVC. The catheter was inserted into the sheath. The sheath was cracked and pulled away, leaving the catheter within the SVC. The catheter was pulled back to an appropriate level, and was trimmed to length. The Mediport hub was attached and buried in the pocket. The Mediport hub was sutured to the chest wall using 3-0 Vicryl suture. The overlying soft tissue was also closed using 3-0 Vicryl suture. The overlying skin was closed using 4-0 Vicryl Rapide suture in subcuticular fashion. Dressings were placed. The hub was accessed with a You needle. It was aspirated and flushed without difficulty. This portion of the procedure was now concluded. Next the area of the right breast, right arm, and right axilla were prepped and draped in a normal sterile fashion. The breast was then marked appropriately. An incision was created in elliptical fashion from the midline chest wall to the area of the axilla. Superior and inferior flaps were raised, the breast tissue from the skin. This was done to the inframammary fold inferiorly and to the level of the clavicle superiorly, using electrocautery. Next, the breast was elevated away from the chest wall starting medially and working laterally. This was also done with electrocautery. All the breast tissue was elevated, and when the lateral border of the pectoralis muscle was reached, the breast tissue was amputated. It was marked with sutures. Short stitch superior, long stitch medial. Hemostasis was achieved using electrocautery and suture ligation of 3-0 Vicryl. Attention was then turned to the sentinel lymph node biopsy. The gamma probe was used to identify hot spots within the right axilla. This was done through the mastectomy incision. Using a mixture of sharp and blunt dissection, the axilla proper was entered. With the aid of the gamma probe, several hot spots were identified, and excised. The first sentinel lymph node was identified and removed from the patient using sharp dissection and clips. An ex vivo 10-second count was performed. This measured 1112. The axilla was again inspected, and another hot spot was identified. This second hotspot was excised using clips and sharp dissection. An ex vivo count was performed on the second sentinel lymph node and measured 1217. The axilla was again inspected, and no further hot spots could be identified. A background count of 75 was obtained. This confirmed that all sentinel lymph nodes were removed. There was a separate portion of tissue that had been excised, that was not radioactive. This was sent as additional lymph nodes. The axilla was inspected. Hemostasis was achieved using judicious amounts of electrocautery, suture ligation, and hemoclips. Attention was then turned to placement of the drains and closure. Two 15 Ethiopian round Nicolas drains were placed through separate stab incisions on the inferior lateral aspect of the incision. The drains were sutured into place using 2-0 nylon suture. The subcutaneous tissue was closed using 3-0 Vicryl suture in simple interrupted fashion. The overlying skin was closed using 4-0 Vicryl Rapide suture in subcuticular fashion. Dressings were placed, and the procedure was concluded. All sponge, instrument, and needle counts were correct x2. Condition: Stable. Dr. Celaya was scrubbed and present for the procedure. He assisted with all erickson portions of the procedure including opening of the skin, dissection of the skin flaps, removal of the breast tissue, dissection of the axilla, removal of the sentinel lymph nodes.
[2018-06-25] MEDS ORDERED: PREGABALIN 50 MG CAPSULE PO SCH (09:30)
== END 2018-06-24 11:00 | disposition home or self-care (01) ==
LOC: OROUT 10:22 → 4S 19:14 → OROUT 06-24 11:00
PROVIDERS: ATTEND Surgery
DX: C50.911 Malignant neoplasm of unspecified site of right female breast (principal); Z79.84 Long term (current) use of oral hypoglycemic drugs; Z79.51 Long term (current) use of inhaled steroids; Z88.8 Allergy status to other drugs, medicaments and biological substances; E61.1 Iron deficiency; J45.909 Unspecified asthma, uncomplicated; E11.9 Type 2 diabetes mellitus without complications; E78.5 Hyperlipidemia, unspecified; I10 Essential (primary) hypertension; E66.9 Obesity, unspecified; K21.9 Gastro-esophageal reflux disease without esophagitis
CPT/HCPCS: 36561; 82962; 88342 ×2; 88305 ×2; 88307 ×2; 77001; 78195; 94660; 94762 ×2; 19307; C1788; A9520; J2250; J3490 ×4; J1100; J3010; J1885; J2765; J2270; J1170; J2405 ×2; J7050; J2704; S0028; J7620; J0690; J1642; J0131; J1741; 1610; Q9968

== ENCOUNTER 2018-06-24 22:31 | Emergency (ER) | payer OTHER ==
[2018-06-24 22:38] VITALS: BP 134/77
--- NOTE | 2018-06-25 00:12 | ER Document Report ---
ED General - General Chief Complaint: Post Surgical Pain Stated Complaint: POST OP SWELLING/PAIN Time Seen by Provider: 06/24/18 23:51 Primary Care Provider: MALDONADO ALLRED MD [Primary Care Provider] - Follow up as needed TRAVEL OUTSIDE OF THE [place] IN LAST 30 DAYS: No - HPI Notes: Patient is a 48-year-old female that presents to the emergency department for chief complaint of postoperative pain. Patient had a right mastectomy with sentinel node biopsy for breast cancer and a left IJ Mediport placed yesterday by Dr. Allred. Patient was discharged from the hospital today. She states that she has a lump over her med port and is concerned that it has infiltrated. She is due to get chemotherapy and the port starting next week. She denies any drainage or bleeding around the port site. Patient is also complaining of pain and a "pulling" sensation by her drains on the right. She denies any dyspnea, fevers, nausea/vomiting and chest pain Past Medical History: Breast cancer Past Surgical History: Right mastectomy with sentinel node biopsy, left IJ Mediport Social History: Reviewed in chart Family History: Reviewed and noncontributory for presenting illness Allergies: Reviewed, see documented allergy list. REVIEW OF SYSTEMS: CONSTITUTIONAL : No fever No chills No diaphoresis No recent illness EENT: No vision changes No congestion No sore throat CARDIOVASCULAR: No chest pain No palpitations RESPIRATORY: No shortness of breath No cough No difficulty breathing GASTROINTESTINAL: No abdominal pain No nausea No vomiting No diarrhea GENITOURINARY: No dysuria No hematuria No difficulty urinating MUSCULOSKELETAL: No back pain Postoperative pain No leg pain No arm pain SKIN: No rashes No lesions LYMPHATIC: No swollen, enlarged glands. NEUROLOGICAL: No lightheadedness No headache No weakness No paresthesias PSYCHIATRIC: No anxiety No depression PHYSICAL EXAMINATION: Vital signs reviewed, nursing noted reviewed. GENERAL: Well-appearing, obese and in no acute distress. HEAD: Atraumatic, normocephalic. EYES: Eyes appear normal, extraocular movements intact, sclera anicteric, conjunctiva are normal. ENT: nares patent, oropharynx clear without exudates. Moist mucous membranes. NECK: Normal range of motion, supple without lymphadenopathy LUNGS: Tenderness to palpation of left anterior chest around Mediport. Borders of Mediport easily palpable. Breath sounds clear to auscultation bilaterally and equal. No wheezes rales or rhonchi. HEART: Regular rate and rhythm without murmurs ABDOMEN: Soft, nontender, normoactive bowel sounds. No rebound, guarding, or rigidity. No masses appreciated. EXTREMITIES: Nontender, good range of motion, no pitting or edema. NEUROLOGICAL: No focal neurological deficits. Moves all extremities spontaneously Motor and sensory grossly intact on exam. PSYCH: Normal mood, normal affect. SKIN: Warm, Dry, normal turgor, surgical incision over left anterior chest wall and left IJ clean, dry and intact with mild surrounding ecchymosis. Surgical incision over anterior right chest with [address] Bloody serous drainage in ERYN drains. No drainage through right anterior chest wall dressing. - Related Data Allergies/Adverse Reactions: fluoxetine HCl [From Prozac] Allergy (Verified 06/24/18 22:33) Hives gabapentin [Gabapentin] Allergy (Verified 06/24/18 22:33) BURNING IN VEINS Past Medical History - Social History Smoking Status: Never Smoker Family History: Reviewed & Not Pertinent - Past Medical History Cardiac Medical History: Denies: Hx Coronary Artery Disease, Hx Heart Attack, Hx Hypertension Pulmonary Medical History: Reports: Hx Asthma - Onset 2000, Hx Pneumonia Denies: Hx Bronchitis, Hx COPD, Hx Tuberculosis Neurological Medical History: Denies: Hx Cerebrovascular Accident, Hx Seizures Endocrine Medical History: Reports: Hx Diabetes Mellitus Type 2 Renal/ Medical History: Denies: Hx Peritoneal Dialysis GI Medical History: Reports: Hx Gastroesophageal Reflux Disease Musculoskeletal Medical History: Reports Hx Arthritis - OSTEOARTHRITIS, GENERAL Psychiatric Medical History: Denies: Hx Depression Past Surgical History: Reports: Hx Section - 2, Hx Tubal Ligation. Denies: Hx Pacemaker - Immunizations Hx Diphtheria, Pertussis, Tetanus Vaccination: Yes - <10 Hx Pneumococcal Vaccination: 02/06/12 Physical Exam - Vital signs Vitals: Temp Pulse Resp BP Pulse Ox 98.3 F 74 16 134/77 H 97 06/24/18 22:36 06/24/18 22:36 06/24/18 22:36 06/24/18 22:36 06/24/18 22:36 Course - Re-evaluation Re-evalutation: 06/25/18 00:10 Vitals reviewed. Nursing notes reviewed. Patient was concerned that her Medpor had infiltrated and that there was a lump. The lump she was feeling was the Mediport itself. Her surgical incisions of her anterior left chest wall and IJ are healing well with no acute bleeding or drainage. She does have some mild postoperative ecchymosis which is to be expected. Patient was also complaining of a pulling sensation around the site of her right ERYN drains. The drains have bloody serous drainage but are working appropriately and right-sided surgical incisions are also clean and intact with no bleeding. Patient does have pain medication at home which she was advised to continue taking. Her postoperative wounds were evaluated by Dr. Tucker in the ER who agrees that she is healing well and the Mediport is appropriately placed. She will continue to follow as previously directed after surgery. - Vital Signs Vital signs: Temp Pulse Resp BP Pulse Ox 98.3 F 74 16 134/77 H 97 06/24/18 22:36 06/24/18 22:36 06/24/18 22:36 06/24/18 22:36 06/24/18 22:36 Discharge - Discharge Clinical Impression: Postoperative pain Condition: Stable Disposition: HOME, SELF-CARE Additional Instructions: Please return to the emergency department if you have any worsening, or concern of your symptoms. Please return to the emergency department if you develop chest pain, difficulty breathing, severe abdominal pain, or ongoing vomiting. Please follow-up with your primary care physician in 2-3 days and any other recommended physicians. If prescribed, take all medications as directed. If you have any questions or concerns do not hesitate to return the emergency department for evaluation. Follow with Dr. Allred as directed when you were discharged from the hospital sofia cain Referrals: MALDONADO ALLRED MD [Primary Care Provider] - Follow up as needed
== END 2018-06-25 00:38 | disposition home or self-care (01) ==
LOC: ER 22:31
DX: G89.18 Other acute postprocedural pain (principal); E11.9 Type 2 diabetes mellitus without complications; Z98.51 Tubal ligation status; Z85.3 Personal history of malignant neoplasm of breast; Z90.11 Acquired absence of right breast and nipple
CPT/HCPCS: 99283

== ENCOUNTER → 2018-07-17 | Outpatient (CLI) | payer OTHER ==
--- NOTE | 2018-07-17 16:34 | WOMENS IMAGING REPORT ---
EXAM DESCRIPTION: BREAST SPECIMEN COMPLETED DATE/TIME: 07/17/2018 4:12 pm REASON FOR STUDY: CHECKING FOR CLIP IN BREAST SPECIMEN COMPARISON: None. TECHNIQUE: Specimen radiograph of the breast material in pathology wax blocks LIMITATIONS: None. FINDINGS: The ribbon shaped biopsy clip from the axillary lymph node is not identified in the wax bl ocks. IMPRESSION: The ribbon shaped biopsy clip from the axillary lymph node is not included in the radiog raphs of pathology wax blocks TECHNICAL DOCUMENTATION: JOB ID: [id number] Reading location - IP/workstation name: [email or web address]
== END ==
LOC: WI 14:39
PROVIDERS: ATTEND Surgery
DX: Z09 Encounter for follow-up examination after completed treatment for conditions other than malignant neoplasm (principal)
CPT/HCPCS: 76098

== ENCOUNTER → 2018-07-20 | Outpatient (CLI) | payer MEDICAID, OTHER ==
--- NOTE | 2018-07-20 16:23 | WOMENS IMAGING REPORT ---
EXAM DESCRIPTION: RIGHT DIAGNOSTIC MAMMO W/CAD COMPLETED DATE/TIME: 07/20/2018 11:49 am REASON FOR STUDY: C50.211 MALIGNANT NEOPLASM OF UPPER-INNER QUADRANT OF RIGHT FEMALE BREAST C50.211 MALIG NEOPLM OF UPPER-INNER QUADRANT OF RIGHT FEMALE COMPARISON: Multiple previous mammograms since 2011 TECHNIQUE: Exaggerated craniocaudad and MLO views of the right axilla and anterior chest wall breast recorded with digital acquisition. LIMITATIONS: None. FINDINGS: BREAST LATERALITY: Right Patient is post right mastectomy. Today's mammograms were performed to assess whether the sonographi chris placed biopsy clip in the axillary lymph node is present in the patient. Today's mammograms demonstrate surgical clips in the axilla post sentinel node dissection, and post m astectomy changes along the right anterior chest wall. No ribbon shaped biopsy clips are identified in the field of view today. Read with the assistance of CAD. .REPLACED BY [facility] - [employer] Engineer Version 9.2 IMPRESSION: Post mastectomy. Ribbon shaped sonographically placed biopsy clips in right axillary ly mph node and upper outer quadrant mass seen on mammograms 05/24/2018 are not identified in the patient today. BREAST DENSITY: a. The breasts are almost entirely fatty. BIRAD: 2 Benign findings. RECOMMENDATION: RECOMMENDED FOLLOW UP: Please continue left breast screening in April 2019 SPECIFIC INTERVENTION/IMAGING/CONSULTATION RECOMMENDED:Please continue left breast screening in 2019 COMMUNICATION:Patient notified by letter COMMENT: The patient has been notified of the results by letter per MQSA requirements. Additional no tification policies are in place for contacting patient with suspicious or incomplete findings. Quality ID #225: The [employer] recommends an annual screening mammogram for women aged 40 years or over. This facility utilizes a reminder system to ensure that all patients receive reminder letters, and/or direct phone calls for appointments. This includes reminders for routine scr eening mammograms, diagnostic mammograms, or other Breast Imaging Interventions when appropriate. Th is patient will be placed in the appropriate reminder system. TECHNICAL DOCUMENTATION: FINDING NUMBER: (1) ASSESSMENT: (1) JOB ID: [id number] [employer]- All Rights Reserved Reading location - IP/workstation name: [email or web address]
== END ==
LOC: WI 11:30
PROVIDERS: ATTEND Internal Medicine
DX: C50.211 Malignant neoplasm of upper-inner quadrant of right female breast (principal)

== ENCOUNTER 2018-08-08 09:12 | Outpatient (CLI) | payer OTHER ==
[~2018-08-08 09:12] MED LIST changes: -CEFAZOLIN 2 GM/D5W RTU 2 GM/50 ML RTUPB IV PRN; +CYCLOPHOSPHAMIDE IV PRN; +DEXAMETHASONE SOD PHOSPHATE 20 MG in NORMAL SALINE 50 ML IV PRN; +DIPHENHYDRAMINE HCL 50 MG in NORMAL SALINE 50 ML IV PRN; +DOCETAXEL IV PRN; +FAMOTIDINE 20 MG in NS 50 ML IV PRN; +FOSAPREPITANT 150 MG in NS 150 ML IV PRN; -IBUPROFEN 800 MG in NORMAL SALINE 250 ML IV PRN; -LIDOCAINE 4% TRANSPARENT DRESSING 5 GM KIT TP PRN; +NORMAL SALINE 500 ML @ KVO IV PRN; +NORMAL SALINE IV PRN; +PALONOSETRON 0.25 MG/5 ML VIAL IV PRN
[2018-08-08 10:32] VITALS: BP 129/77
== END 2018-08-08 15:33 | disposition home or self-care (01) ==
LOC: II 09:12 → 5TH 09:14 → II 15:33
PROVIDERS: ATTEND Internal Medicine
PROC: 3E04305 Introduction of Other Antineoplastic into Central Vein, Percutaneous Approach (ICD-10-PCS; principal; 2018-08-08)
PROC: 3E0433Z Introduction of Anti-inflammatory into Central Vein, Percutaneous Approach (ICD-10-PCS; 2018-08-08)
PROC: 3E043GC Introduction of Other Therapeutic Substance into Central Vein, Percutaneous Approach (ICD-10-PCS; 2018-08-08)
DX: Z51.11 Encounter for antineoplastic chemotherapy (principal); C50.211 Malignant neoplasm of upper-inner quadrant of right female breast
CPT/HCPCS: 96413; 96415; 96365; 96366; 96374; 96360; J9171 ×2; J9070; J1200; J7050 ×2; J7040; S0028; J1100; J1642; J1453; J2469; 96367; 96375; 96417

== ENCOUNTER 2018-08-09 15:06 | Outpatient (CLI) | payer OTHER ==
[~2018-08-09 15:06] MED LIST changes: -CYCLOPHOSPHAMIDE IV PRN; -DEXAMETHASONE SOD PHOSPHATE 20 MG in NORMAL SALINE 50 ML IV PRN; -DIPHENHYDRAMINE HCL 50 MG in NORMAL SALINE 50 ML IV PRN; -DOCETAXEL IV PRN; -FAMOTIDINE 20 MG in NS 50 ML IV PRN; -FOSAPREPITANT 150 MG in NS 150 ML IV PRN; -NORMAL SALINE 500 ML @ KVO IV PRN; -NORMAL SALINE IV PRN; -PALONOSETRON 0.25 MG/5 ML VIAL IV PRN; +PEGFILGRASTIM INJ 6 MG/0.6 ML DISP.SYRIN SUBCUT PRN
[2018-08-09 15:17] VITALS: BP 132/64
== END 2018-08-09 16:05 | disposition home or self-care (01) ==
LOC: II 15:06 → 5TH 15:07 → II 16:05
PROVIDERS: ATTEND Internal Medicine
PROC: 3E013GC Introduction of Other Therapeutic Substance into Subcutaneous Tissue, Percutaneous Approach (ICD-10-PCS; principal; 2018-08-09)
DX: Z76.89 Persons encountering health services in other specified circumstances (principal); C50.211 Malignant neoplasm of upper-inner quadrant of right female breast; D70.2 Other drug-induced agranulocytosis
CPT/HCPCS: 96372; J2505

== ENCOUNTER 2018-08-29 09:07 | Outpatient (CLI) | payer OTHER ==
[~2018-08-29 09:07] MED LIST changes: +CYCLOPHOSPHAMIDE IV PRN; +DEXAMETHASONE SOD PHOSPHATE 20 MG in NORMAL SALINE 50 ML IV PRN; +DIPHENHYDRAMINE 50 MG in NS 50 ML IV PRN; +DOCETAXEL IV PRN; +FAMOTIDINE 20 MG in NS 50 ML IV PRN; +FAMOTIDINE 20 MG/2 ML VIAL IV PRN; +FOSAPREPITANT 150 MG in NS 150 ML IV PRN; +NORMAL SALINE 1000 ML @ AS DIRECTED IV PRN; +NORMAL SALINE IV PRN; +PALONOSETRON 0.25 MG/5 ML VIAL IV PRN; -PEGFILGRASTIM INJ 6 MG/0.6 ML DISP.SYRIN SUBCUT PRN
[2018-08-29 09:28] VITALS: BP 135/64
== END 2018-08-29 14:44 | disposition home or self-care (01) ==
LOC: II 09:07 → 5TH 09:09 → II 14:44
PROVIDERS: ATTEND Internal Medicine
PROC: 3E04305 Introduction of Other Antineoplastic into Central Vein, Percutaneous Approach (ICD-10-PCS; principal; 2018-08-29)
PROC: 3E0433Z Introduction of Anti-inflammatory into Central Vein, Percutaneous Approach (ICD-10-PCS; 2018-08-29)
PROC: 3E043GC Introduction of Other Therapeutic Substance into Central Vein, Percutaneous Approach (ICD-10-PCS; 2018-08-29)
DX: Z51.11 Encounter for antineoplastic chemotherapy (principal); C50.211 Malignant neoplasm of upper-inner quadrant of right female breast
CPT/HCPCS: 96413; 96367; 96375; 96417; J9070; J1200; J7050 ×2; J7040; S0028; J1100; J1642; J1453; J2469; J9171; 96365; 96366; 96374; 96415

== ENCOUNTER 2018-08-30 14:27 | Outpatient (CLI) | payer OTHER ==
[~2018-08-30 14:27] MED LIST changes: -CYCLOPHOSPHAMIDE IV PRN; -DEXAMETHASONE SOD PHOSPHATE 20 MG in NORMAL SALINE 50 ML IV PRN; -DIPHENHYDRAMINE 50 MG in NS 50 ML IV PRN; -DOCETAXEL IV PRN; -FAMOTIDINE 20 MG in NS 50 ML IV PRN; -FAMOTIDINE 20 MG/2 ML VIAL IV PRN; -FOSAPREPITANT 150 MG in NS 150 ML IV PRN; -NORMAL SALINE 1000 ML @ AS DIRECTED IV PRN; -NORMAL SALINE IV PRN; -PALONOSETRON 0.25 MG/5 ML VIAL IV PRN; +PEGFILGRASTIM INJ 6 MG/0.6 ML DISP.SYRIN SUBCUT PRN
[2018-08-30 14:45] VITALS: BP 120/78
== END 2018-08-30 14:59 | disposition home or self-care (01) ==
LOC: II 14:27 → 5TH 14:32 → II 14:59
PROVIDERS: ATTEND Internal Medicine
PROC: 3E013GC Introduction of Other Therapeutic Substance into Subcutaneous Tissue, Percutaneous Approach (ICD-10-PCS; principal; 2018-08-30)
DX: Z76.89 Persons encountering health services in other specified circumstances (principal); C50.211 Malignant neoplasm of upper-inner quadrant of right female breast; D70.2 Other drug-induced agranulocytosis
CPT/HCPCS: 96372; J2505

== ENCOUNTER 2018-09-19 08:56 | Outpatient (CLI) | payer OTHER ==
[~2018-09-19 08:56] MED LIST changes: +CYCLOPHOSPHAMIDE IV PRN; +DEXAMETHASONE 10 MG in NS 50 ML IV PRN; +DEXAMETHASONE SOD PHOSPHATE 20 MG in NORMAL SALINE 50 ML IV PRN; +DIPHENHYDRAMINE 50 MG in NS 50 ML IV PRN; +DOCETAXEL IV PRN; +FAMOTIDINE 20 MG in NS 50 ML IV PRN; +FOSAPREPITANT 150 MG in NS 150 ML IV PRN; +NORMAL SALINE 1000 ML @ AS DIRECTED IV PRN; +NORMAL SALINE IV PRN; +PALONOSETRON 0.25 MG/5 ML VIAL IV PRN; -PEGFILGRASTIM INJ 6 MG/0.6 ML DISP.SYRIN SUBCUT PRN
[2018-09-19 09:14] VITALS: BP 131/71
== END 2018-09-19 14:17 | disposition home or self-care (01) ==
LOC: II 08:56 → 5TH 08:59 → II 14:17
PROVIDERS: ATTEND Internal Medicine
PROC: 3E04305 Introduction of Other Antineoplastic into Central Vein, Percutaneous Approach (ICD-10-PCS; principal; 2018-09-19)
PROC: 3E0433Z Introduction of Anti-inflammatory into Central Vein, Percutaneous Approach (ICD-10-PCS; 2018-09-19)
PROC: 3E043GC Introduction of Other Therapeutic Substance into Central Vein, Percutaneous Approach (ICD-10-PCS; 2018-09-19)
DX: Z51.11 Encounter for antineoplastic chemotherapy (principal); C50.211 Malignant neoplasm of upper-inner quadrant of right female breast; Z90.11 Acquired absence of right breast and nipple
CPT/HCPCS: 96413; 96367; 96375; 96361; 96417; J9070; J1200; J7050 ×2; J7040; S0028; J1100; J1642; J1453; J2469; J9171; 96360; 96365; 96366; 96374; 96415

== ENCOUNTER 2018-09-20 13:44 | Outpatient (CLI) | payer OTHER ==
[~2018-09-20 13:44] MED LIST changes: -CYCLOPHOSPHAMIDE IV PRN; -DEXAMETHASONE 10 MG in NS 50 ML IV PRN; -DEXAMETHASONE SOD PHOSPHATE 20 MG in NORMAL SALINE 50 ML IV PRN; -DIPHENHYDRAMINE 50 MG in NS 50 ML IV PRN; -DOCETAXEL IV PRN; -FAMOTIDINE 20 MG in NS 50 ML IV PRN; -FOSAPREPITANT 150 MG in NS 150 ML IV PRN; -NORMAL SALINE 1000 ML @ AS DIRECTED IV PRN; -NORMAL SALINE IV PRN; -PALONOSETRON 0.25 MG/5 ML VIAL IV PRN; +PEGFILGRASTIM-CBQV 6 MG/0.6 ML SYRINGE SUBCUT PRN
[2018-09-20 13:56] VITALS: BP 120/62
== END 2018-09-20 14:13 | disposition home or self-care (01) ==
LOC: II 13:44 → 5TH 13:48 → II 14:13
PROVIDERS: ATTEND Internal Medicine
PROC: 3E013GC Introduction of Other Therapeutic Substance into Subcutaneous Tissue, Percutaneous Approach (ICD-10-PCS; principal; 2018-09-20)
DX: Z76.89 Persons encountering health services in other specified circumstances (principal); C50.211 Malignant neoplasm of upper-inner quadrant of right female breast; D70.2 Other drug-induced agranulocytosis
CPT/HCPCS: 96372; Q5111

== ENCOUNTER → 2018-11-07 | Outpatient (CLI) | payer OTHER, MEDICAID ==
--- NOTE | 2018-11-07 09:31 | WOMENS IMAGING REPORT ---
EXAM DESCRIPTION: BONE DENSITY HIP/SPINE COMPLETED DATE/TIME: 11/07/2018 8:56 am REASON FOR STUDY: E28.39 OTHER PRIMARY OVARIAN FAILURE E28.39 OTHER PRIMARY OVARIAN FAILURE COMPARISON: None. TECHNIQUE: Dual-Energy X-ray Absorptiometry (DEXA) of the AP Spine and Hip. LIMITATIONS: None. FINDINGS: LUMBAR SPINE: The bone mineral density (BMD) measured from L1-L4 in the AP projection correlates with a T-score of +1.3, which is normal as defined by the World Health Organization. BMD Change vs Baseline: N/A HIP: The bone mineral density (BMD) measured in the left femoral neck at the hip correlates with a T-score of +2.6, which is normal as defined by the World Health Organization. BMD Change vs Baseline: N/A 10 year Fracture Risk Assessment: Major Osteoporotic Fracture: Not available. Hip Fracture: Not available. IMPRESSION: 1. LUMBAR SPINE WHO CLASSIFICATION: Normal 2. HIP WHO CLASSIFICATION: Normal OVERALL ASSESSMENT: WHO CLASSIFICATION: Normal COMMENT: The World Health Organization defines low BMD as follows: T-score: Normal: Greater than -1.0 Osteopenia: Between -1.0 and -2.5 Osteoporosis: Less than -2.5 without fractures Established osteoporosis: Less than -2.5 with fractures In general, you may wish to consider: Diagnosis Treatment Follow-up DEXA Normal BMD Prevention 2-3 years Osteopenia Prevention/Therapy 1-2 years Osteoporosis Therapy Yearly TECHNICAL DOCUMENTATION: JOB ID: [id number] [employer]- All Rights Reserved Reading location - IP/workstation name: [email or web address]
== END ==
LOC: WI 08:21
PROVIDERS: ATTEND Internal Medicine
DX: E28.39 Other primary ovarian failure (principal)
CPT/HCPCS: 77080

== ENCOUNTER → 2019-05-30 | Outpatient (CLI) | payer OTHER ==
--- NOTE | 2019-05-30 12:50 | WOMENS IMAGING REPORT ---
EXAM DESCRIPTION: LEFT DIAGNOSTIC MAMMO W/CAD; U/S BREAST UNILAT LIMITED COMPLETED DATE/TIME: 05/30/2019 11:19 am; 05/30/2019 11:34 am REASON FOR STUDY: N63.0 UNSPECIFIED LUMP IN UNSPECIFIED BREAST; LT BREAST N63.0 N63.0 UNSPECIFIED L UMP IN UNSPECIFIED BREAST COMPARISON: Prior mammograms going back to 2012. EXAM PARAMETERS: Standard craniocaudal and mediolateral oblique images of the breast recorded with d igital acquisition. Additional true lateral and spot compression images. Targeted breast ultrasound the region of concern. Read with the assistance of CAD. .[facility] [employer] Sales Associate Version 9.2 LIMITATIONS: None. FINDINGS: BREAST LATERALITY: Left MASSES: No suspicious masses. CALCIFICATIONS: No new or suspicious calcifications. ARCHITECTURAL DISTORTION: None. ASYMMETRY: None noted. OTHER: No other significant findings. Ultrasound: Scanning in the region of palpable abnormality close to 9 o'clock is performed. Imaging is performed from 8- 10 o'clock and reveals no mass or tissue distortion IMPRESSION: Negative left breast imaging. BREAST DENSITY: b. There are scattered areas of fibroglandular density. BIRAD: ASSESSMENT: 1 Negative. RECOMMENDATION: RECOMMENDED FOLLOW UP: Birads 1 or 2: No breast imaging finding to explain the patie nt's presenting complaint. Further intervention should be based on the degree of clinical suspicion. SPECIFIC INTERVENTION/IMAGING/CONSULTATION RECOMMENDED:No additional intervention/ imaging/consultati on needed at this time. COMMUNICATION:No significant abnormalities to discuss with the patient today. COMMENT: The patient has been notified of the results by letter per SA requirements. Additional no tification policies are in place for contacting patient with suspicious or incomplete findings. Quality ID #225: The [employer] recommends an annual screening mammogram for women aged 40 years or over. This facility utilizes a reminder system to ensure that all patients receive reminder letters, and/or direct phone calls for appointments. This includes reminders for routine scr eening mammograms, diagnostic mammograms, or other Breast Imaging Interventions when appropriate. Th is patient will be placed in the appropriate reminder system. TECHNICAL DOCUMENTATION: FINDING NUMBER: (1) ASSESSMENT: (1) JOB ID: [id number] 2010 [employer]- All Rights Reserved Reading location - IP/workstation name: [email or web address]
--- NOTE | 2019-05-30 12:50 | WOMENS IMAGING REPORT ---
EXAM DESCRIPTION: LEFT DIAGNOSTIC MAMMO W/CAD; U/S BREAST UNILAT LIMITED COMPLETED DATE/TIME: 05/30/2019 11:19 am; 05/30/2019 11:34 am REASON FOR STUDY: N63.0 UNSPECIFIED LUMP IN UNSPECIFIED BREAST; LT BREAST N63.0 N63.0 UNSPECIFIED L UMP IN UNSPECIFIED BREAST COMPARISON: Prior mammograms going back to 2012. EXAM PARAMETERS: Standard craniocaudal and mediolateral oblique images of the breast recorded with d igital acquisition. Additional true lateral and spot compression images. Targeted breast ultrasound the region of concern. Read with the assistance of CAD. .[facility] - [employer] Analyst Version 9.2 LIMITATIONS: None. FINDINGS: BREAST LATERALITY: Left MASSES: No suspicious masses. CALCIFICATIONS: No new or suspicious calcifications. ARCHITECTURAL DISTORTION: None. ASYMMETRY: None noted. OTHER: No other significant findings. Ultrasound: Scanning in the region of palpable abnormality close to 9 o'clock is performed. Imaging is performed from 8- 10 o'clock and reveals no mass or tissue distortion IMPRESSION: Negative left breast imaging. BREAST DENSITY: b. There are scattered areas of fibroglandular density. BIRAD: ASSESSMENT: 1 Negative. RECOMMENDATION: RECOMMENDED FOLLOW UP: Birads 1 or 2: No breast imaging finding to explain the patie nt's presenting complaint. Further intervention should be based on the degree of clinical suspicion. SPECIFIC INTERVENTION/IMAGING/CONSULTATION RECOMMENDED:No additional intervention/ imaging/consultati on needed at this time. COMMUNICATION:No significant abnormalities to discuss with the patient today. COMMENT: The patient has been notified of the results by letter per SA requirements. Additional no tification policies are in place for contacting patient with suspicious or incomplete findings. Quality ID #225: The [employer] recommends an annual screening mammogram for women aged 40 years or over. This facility utilizes a reminder system to ensure that all patients receive reminder letters, and/or direct phone calls for appointments. This includes reminders for routine scr eening mammograms, diagnostic mammograms, or other Breast Imaging Interventions when appropriate. Th is patient will be placed in the appropriate reminder system. TECHNICAL DOCUMENTATION: FINDING NUMBER: (1) ASSESSMENT: (1) JOB ID: [id number] 2010 [employer]- All Rights Reserved Reading location - IP/workstation name: [email or web address]
== END ==
LOC: WI 10:36
PROVIDERS: ATTEND Internal Medicine
DX: N63.21 Unspecified lump in the left breast, upper outer quadrant (principal)
CPT/HCPCS: 76642; 77065

== ENCOUNTER 2019-12-27 17:29 | Emergency (ER) | payer OTHER ==
--- NOTE | 2019-12-27 18:06 | ER Document Report ---
ED Medical Screen (RME) - General Chief Complaint: Other Stated Complaint: PAIN FROM PORT Time Seen by Provider: 12/27/19 17:53 Primary Care Provider: NISHA BURTON MD [Primary Care Provider] - Follow up as needed Mode of Arrival: Ambulatory Information source: Patient Notes: 49-year-old female presented to ED for complaint of left chest pain. She states that she has a port in her left upper chest. She states her gave her a bear hug about 3 days ago when she felt some different immediately. She states each day since then has become more more sore and more difficult to take deep breaths due to the pain. She states last night she had to sit up on the side of the bed took a Percocet and 600 mg of ibuprofen in order to be able to go to sleep sitting up. She states the port feels different to her. She states she has a port because of right-sided breast CA. She states her last chemo was in 2019. She states she did not have any mets to the left side. I did consult with Dr. Gilbert due to the history and the site of pain he stated to just do the chest pain protocol at this time with a chest x-ray and they will decide if they need to do a CT of the chest. I have instructed the nurse not to let them use this port until she has been further evaluated. She states the port has not been flushed since November. I have greeted and performed a rapid initial assessment of this patient. A comprehensive ED assessment and evaluation of the patient, analysis of test results and completion of medical decision making process will be conducted by an additional ED providers. TRAVEL OUTSIDE OF THE [place] IN LAST 30 DAYS: No - Related Data Allergies/Adverse Reactions: fluoxetine HCl [From Prozac] Allergy (Verified 12/27/19 17:53) Hives gabapentin [Gabapentin] Allergy (Verified 12/27/19 17:53) BURNING IN VEINS Past Medical History - Past Medical History Cardiac Medical History: Denies: Hx Coronary Artery Disease, Hx Heart Attack, Hx Hypertension Pulmonary Medical History: Reports: Hx Asthma - Onset 2000, Hx Pneumonia Denies: Hx Bronchitis, Hx COPD, Hx Tuberculosis Neurological Medical History: Denies: Hx Cerebrovascular Accident, Hx Seizures Endocrine Medical History: Reports: Hx Diabetes Mellitus Type 2 Renal/ Medical History: Denies: Hx Peritoneal Dialysis GI Medical History: Reports: Hx Gastroesophageal Reflux Disease Musculoskeltal Medical History: Reports Hx Arthritis - OSTEOARTHRITIS, GENERAL Psychiatric Medical History: Denies: Hx Depression Past Surgical History: Reports: Hx Section - 2, Hx Tubal Ligation. Denies: Hx Pacemaker - Immunizations Hx Diphtheria, Pertussis, Tetanus Vaccination: Yes - <10 Physical Exam - Vital signs Vitals: Temp Pulse Resp BP Pulse Ox 98.3 F 69 20 149/83 H 100 12/27/19 17:35 12/27/19 17:35 12/27/19 17:35 12/27/19 17:35 12/27/19 17:35 Course - Vital Signs Vital signs: Temp Pulse Resp BP Pulse Ox 98.3 F 69 20 149/83 H 100 12/27/19 17:35 12/27/19 17:35 12/27/19 17:35 12/27/19 17:35 12/27/19 17:35 Doctor's Discharge - Discharge Referrals: NISHA BURTON MD [Primary Care Provider] - Follow up as needed
--- NOTE | 2019-12-27 18:26 | RADIOLOGY REPORT (SQ) ---
EXAM DESCRIPTION: CHEST 2 VIEWS IMAGES COMPLETED DATE/TIME: 12/27/2019 6:17 pm REASON FOR STUDY: chest pain port in left chest COMPARISON: 06/09/2018 TECHNIQUE: Frontal and lateral radiographic views of the chest acquired. NUMBER OF VIEWS: Two view. LIMITATIONS: None. FINDINGS: LUNGS AND PLEURA: No pneumothorax. No consolidation or pleural effusion. MEDIASTINUM AND HILAR STRUCTURES: Stable. HEART AND VASCULAR STRUCTURES: Stable. BONES: No acute findings. HARDWARE: Left chest port. Right mastectomy clips. OTHER: No other significant finding. IMPRESSION: NO ACUTE FINDINGS. TECHNICAL DOCUMENTATION: JOB ID: [id number] 2010 [employer]- All Rights Reserved Reading location - IP/workstation name: [email or web address]
[2019-12-27 19:06] LABS: ABSOLUTE EOSINOPHILS # (AUTO) 0.2 10^3/uL (0.0-0.6); ABSOLUTE LYMPHOCYTES (AUTO) 1.8 10^3/uL (0.5-4.7); ABSOLUTE MONOCYTES (AUTO) 0.4 10^3/uL (0.1-1.4); ABSOLUTE NEUT (AUTO) 3.3 10^3/uL (1.7-8.2); BASOPHILS % (AUTO) 0.6 % (0-2); EOSINOPHILS % (AUTO) 3.5 % (0-6); HEMATOCRIT 35.4 % (36.0-47.0); HEMOGLOBIN 12.3 g/dL (12.0-15.5); LYMPHOCYTES % (AUTO) 32.2 % (13-45); MEAN CORPUSCULAR HGB CONC 34.8 g/dL (32.0-36.0); MEAN CORPUSCULAR VOLUME 86 fl (80-97); MONOCYTES % (AUTO) 6.6 % (3-13); PLATELET COUNT 172 10^3/uL (150-450); RED CELL DISTRIBUTION WIDTH 14.5 % (11.5-14.0); SEGMENTED NEUTROPHILS % (AUTO) 57.1 % (42-78); TOTAL CELLS COUNTED % (AUTO) 100 %; WHITE BLOOD COUNT 5.7 10^3/uL (4.0-10.5)
[2019-12-27 19:15] LABS: PROTHROMBIN TIME 13.4 SEC (11.4-15.4)
[2019-12-27 19:23] LABS: ALBUMIN 3.6 g/dL (3.5-5.0); ALKALINE PHOSPHATASE 195 U/L (38-126); ANION GAP 8 (5-19); ASPARTATE AMINO TRANSFERASE 42 U/L (14-36); BILIRUBIN,DIRECT 0.4 mg/dL (0.0-0.4); BILIRUBIN,TOTAL 0.6 mg/dL (0.2-1.3); BLOOD UREA NITROGEN 21 mg/dL (7-20); CALCIUM 8.8 mg/dL (8.4-10.2); CARBON DIOXIDE 24 mmol/L (22-30); CHLORIDE 108 mmol/L (98-107); GLUCOSE 100 mg/dL (75-110); POTASSIUM 4.6 mmol/L (3.6-5.0); TOTAL PROTEIN 6.5 g/dL (6.3-8.2)
--- NOTE | 2019-12-27 19:26 | EKG REPORT ---
SEVERITY:- NORMAL ECG - SINUS RHYTHM : Confirmed by: Disha Leblanc MD 27-Dec-2019 19:25:07
--- NOTE | 2019-12-27 21:55 | ER Document Report ---
ED General - General Chief Complaint: Chest Wall Pain Stated Complaint: PAIN FROM PORT Time Seen by Provider: 12/27/19 17:53 Primary Care Provider: NISHA BURTON MD [Primary Care Provider] - Follow up as needed Mode of Arrival: Ambulatory Information source: Patient Notes: 12/27/19 17:55 - ED Nursing Note by NUZHAT FITZGERALD Acct Num: [id number] : 1970 Patient Age: 49 pt states her gave her a "bear hug" the other day and felt a soreness in the left side of her chest. States initial injury occurred 3 days ago. Pt states pain has been getting worse. States she took percocet and 3 ibuprofen. States pt October 10, 2018 she was cleared of breast cancer. Pt has port in left chest wall States it was flushed in nov 2019. Pt had right sided breast cancer with mastectomy. Initialized on 12/27/19 17:55 - END OF NOTE ED Medical Screen (Carlos notes) - General Chief Complaint: Other Stated Complaint: PAIN FROM PORT Time Seen by Provider: 12/27/19 17:53 Primary Care Provider: NISHA BURTON MD [Primary Care Provider] - Follow up as needed Mode of Arrival: Ambulatory Information source: Patient Notes: 49-year-old female presented to ED for complaint of left chest pain. She states that she has a port in her left upper chest. She states her gave her a bear hug about 3 days ago when she felt some different immediately. She states each day since then has become more more sore and more difficult to take deep breaths due to the pain. She states last night she had to sit up on the side of the bed took a Percocet and 600 mg of ibuprofen in order to be able to go to sleep sitting up. She states the port feels different to her. She states she has a port because of right-sided breast CA. She states her last chemo was in 2018. She states she did not have any mets to the left side. I did consult with Dr. Gilbert due to the history and the site of pain he stated to just do the chest pain protocol at this time with a chest x-ray and they will decide if they need to do a CT of the chest. I have instructed the nurse not to let them use this port until she has been further evaluated. She states the port has not been flushed since November. MY NOTES 49-year-old female arrives by POV after 3 days ago when her very strong 334 pound 5 foot 9 inch exmilitary gave her a affectionate bearhug lifting her off the floor. Patient reports she has had right-sided mastectomy and left-sided port which has not been used in years. Chest x-ray concurs with clips in the right breast and left port. Patient reports she has had some relief after taking some pain medicine and some nonsteroidals together today. Patient reports there is pain on palpation from her left sternum pointing to her anterior rib around C4 area to her left shoulder and evidence of her port on her left anterior lateral neck. Patient has increased pain upon inspiration and abduction range of motion of her left shoulder. Patient denies any other trauma to the area and denies any spousal abuse. Her daughter can drive her from her house in [place]. TRAVEL OUTSIDE OF THE [place] IN LAST 30 DAYS: No - HPI Onset: Other - x 3 days Severity: Moderate Pain Level: 3 Associated symptoms: Hurts to breath Exacerbated by: Movement, Deep breathing Relieved by: Remaining still, Other - meds Similar symptoms previously: No Recently seen / treated by doctor: No - Related Data Allergies/Adverse Reactions: fluoxetine HCl [From Prozac] Allergy (Verified 12/27/19 17:53) Hives gabapentin [Gabapentin] Allergy (Verified 12/27/19 17:53) BURNING IN VEINS Home Medications: percocet, aleve, lyrica, Past Medical History - General Information source: Patient - Social History Smoking Status: Never Smoker Cigarette use (# per day): No Chew tobacco use (# tins/day): No Smoking Education Provided: No Frequency of alcohol use: None Drug Abuse: None Lives with: Family Family History: Reviewed & Not Pertinent Patient has suicidal ideation: No Patient has homicidal ideation: No - Past Medical History Cardiac Medical History: Denies: Hx Coronary Artery Disease, Hx Heart Attack, Hx Hypertension Pulmonary Medical History: Reports: Hx Asthma - Onset 2000, Hx Pneumonia Denies: Hx Bronchitis, Hx COPD, Hx Tuberculosis Neurological Medical History: Denies: Hx Cerebrovascular Accident, Hx Seizures Endocrine Medical History: Reports: Hx Diabetes Mellitus Type 2 Renal/ Medical History: Denies: Hx Peritoneal Dialysis GI Medical History: Reports: Hx Gastroesophageal Reflux Disease Musculoskeletal Medical History: Reports Hx Arthritis - OSTEOARTHRITIS, GENERAL Psychiatric Medical History: Denies: Hx Depression Past Surgical History: Reports: Hx Section - 2, Hx Tubal Ligation. Denies: Hx Pacemaker - Immunizations Hx Diphtheria, Pertussis, Tetanus Vaccination: Yes - <10 Hx Pneumococcal Vaccination: 02/06/12 Review of Systems - Review of Systems Constitutional: No symptoms reported EENT: No symptoms reported Cardiovascular: See HPI, Chest pain Respiratory: No symptoms reported Gastrointestinal: No symptoms reported Genitourinary: No symptoms reported Female Genitourinary: No symptoms reported Musculoskeletal: No symptoms reported Skin: No symptoms reported Hematologic/Lymphatic: No symptoms reported Neurological/Psychological: No symptoms reported Physical Exam - Vital signs Vitals: Temp Pulse Resp BP Pulse Ox 98.3 F 69 20 149/83 H 100 12/27/19 17:35 12/27/19 17:35 12/27/19 17:35 12/27/19 17:35 12/27/19 17:35 Interpretation: Normal - General General appearance: Appears well, Alert - HEENT Head: Normocephalic, Atraumatic Eyes: Normal Pupils: PERRL - Respiratory Respiratory status: No respiratory distress Chest status: Tender - Tender to palpation left anterior pectoralis muscle from sternum to left shoulder with palpable port on left side and visibly seen into her left lateral neck. No inflammation seen there but even rotation of left shoulder and abduction of left shoulder induces pain., Other - left chest port Breath sounds: Normal Chest palpation: Normal - Cardiovascular Rhythm: Regular Heart sounds: Normal auscultation Murmur: No - Abdominal Inspection: Normal Distension: No distension Bowel sounds: Normal Tenderness: Nontender Organomegaly: No organomegaly - Rectal Hemorrhoids: Other - deferred - Genitourinary Bimanuel exam: Other - deferred - Back Back: Normal, Nontender - Extremities General upper extremity: Normal inspection, Nontender, Normal color, Normal ROM, Normal temperature General lower extremity: Normal inspection, Nontender, Normal color, Normal ROM, Normal temperature, Normal weight bearing. No: Didier's sign - Neurological Neuro grossly intact: Yes Cognition: Normal Orientation: AAOx4 Bashir Coma Scale Eye Opening: Spontaneous [place] Coma Scale Verbal: Oriented [place] Coma Scale Motor: Obeys Commands [place] Coma Scale Total: 15 Speech: Normal Motor strength normal: LUE, RUE, LLE, RLE Sensory: Normal - Psychological Associated symptoms: Normal affect, Normal mood - Skin Skin Temperature: Warm Skin Moisture: Dry Skin Color: Normal Course - Vital Signs Vital signs: Temp Pulse Resp BP Pulse Ox 98.3 F 69 13 136/76 H 98 12/27/19 17:35 12/27/19 17:35 12/27/19 23:01 12/27/19 23:01 12/27/19 23:01 - Laboratory Result Diagrams: 12/27/19 18:38 12/27/19 18:38 Laboratory results interpreted by me: 12/27/19 12/27/19 18:38 18:38 Hct 35.4 L RDW 14.5 H Chloride 108 H BUN 21 H AST 42 H ALT 38 H Alkaline Phosphatase 195 H - Diagnostic Test Radiology reviewed: Reports reviewed - Per radiologist patient has metastatic disease to bones with left scapula fracture. Discharge - Discharge Clinical Impression: Musculoskeletal chest pain, Pathological fracture due to metastatic bone disease Condition: Good Disposition: HOME, SELF-CARE Additional Instructions: Follow-up with Dr. Akhtar or Dr. Javier because of your metastatic bone disease and fracture of your left scapula. Call them tomorrow by telephone and they may ruslan luate the CT scans themselves. Take nonsteroidals like Motrin or Aleve ibuprofen for your bone pain. Return to ER if symptoms persist take medicines as directed. Referrals: NISHA BURTON MD [Primary Care Provider] - Follow up as needed
[2019-12-27] MEDS ORDERED: KETOROLAC TROMETHAMINE INJ/PF 30 MG/1 ML SDV IV ONE (23:40)
[2019-12-27] MEDS ORDERED: FENTANYL CITRATE INJ/PF 100 MCG/2 ML AMPUL IV ONE (23:41)
--- NOTE | 2019-12-28 00:35 | RADIOLOGY REPORT (SQ) ---
CLINICAL INDICATION: left CP after her gave her a "bear hug". creat 0.89. . TECHNIQUE: CT arteriography was obtained of the chest with multiplanar MIP and/or 3-D angiographic reconstructions. This exam was performed according to our departmental dose-optimization program, which includes automated exposure control, adjustment of the mA and/or kV according to patient size and/or use of iterative reconstruction techniques. COMPARISON: None available. CORRELATION: None. FINDINGS: Heterogeneous contrast bolus. Average Hounsfield unit measurement within main pulmonary artery segment of 242. Artifact from venous opacification. There is no evidence of pulmonary embolus. Thoracic aorta is of normal caliber. The heart is top normal. No pericardial effusion. No bulky mediastinal adenopathy. Postsurgical change from right mastectomy and axillary lymph node dissection. Please correlate with history The lungs are grossly clear. No consolidation or edema. No effusion or pneumothorax. Visualized abdominal contents demonstrate old granulomatous disease. Mild hepatic steatosis. Splenomegaly at 15.7 cm in greatest cross-sectional dimension.. Visualized bones demonstrate osseous metastatic disease. Presumably, this related to the presumed breast carcinoma.. Nondisplaced fracture left scapula series 3 image 31. Given the irregularity to the trabecular in this distribution, this may be a pathologic fracture IMPRESSION: No evidence of pulmonary embolus. Lungs grossly clear. Osseous metastatic disease. Is this a known finding? Nondisplaced fracture left scapula .
[2019-12-28 01:20] VITALS: BP 135/83
== END 2019-12-28 01:12 | disposition home or self-care (01) ==
LOC: ER 17:29
DX: M84.412A Pathological fracture, left shoulder, initial encounter for fracture (principal); C79.51 Secondary malignant neoplasm of bone; R07.89 Other chest pain; E11.9 Type 2 diabetes mellitus without complications; Z98.51 Tubal ligation status; Z85.3 Personal history of malignant neoplasm of breast
CPT/HCPCS: 93005; 99285; 96374; 96375; 36415; 82550; 85025; 85610; 85730; 80053; 84484; 71046; 71275; 93010; J3010; J1885

== ENCOUNTER → 2020-01-15 | Outpatient (CLI) | payer OTHER ==
--- NOTE | 2020-01-15 12:18 | RADIOLOGY REPORT (SQ) ---
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 No oral contrast. Images reviewed with lung, soft tissue, and bone windows. Reconstructed coronal and sagittal MPR images reviewed. Delayed images for evaluation of the urinary system also acquired. All images stored on PACS. All CT scanners at this facility use dose modulation, iterative reconstruction, and/or weight based d osing when appropriate to reduce radiation dose to as low as reasonably achievable (ALARA). [facility]: Dose Right [facility]: CareDose [facility]: Dose Right [facility]: Teradose 4D [facility]: [employer] CONTRAST TYPE AND DOSE: contrast/concentration: Isovue 350.00 mmol/ml; Total Contrast Delivered: 100 .0 ml; Total Saline Delivered: 40.0 ml RENAL FUNCTION: Creatinine 0.9 RADIATION DOSE: CT Rad equipment meets quality standard of care and radiation dose reduction techniq ues were employed. CTDIvol: 30.4 - 31.2 mGy. DLP: 3305 mGy-cm.. LIMITATIONS: None. FINDINGS: LOWER CHEST: No significant findings. No nodules or infiltrates. LIVER: Normal size. No masses. No dilated ducts. Diffuse low attenuation from fatty infiltration SPLEEN: Normal size. No focal lesions. PANCREAS: No masses. No significant calcifications. No adjacent inflammation or peripancreatic fluid collections. Pancreatic duct not dilated. GALLBLADDER: Surgically absent. ADRENAL GLANDS: No significant masses or asymmetry. RIGHT KIDNEY AND URETER: No solid masses. No significant calcifications. No hydronephrosis or hyd roureter. LEFT KIDNEY AND URETER: No solid masses. No significant calcifications. No hydronephrosis or hydr oureter. AORTA AND VESSELS: No aneurysm. No dissection. Renal arteries, SMA, celiac without stenosis. RETROPERITONEUM: No retroperitoneal adenopathy, hemorrhage or masses. BOWEL AND PERITONEAL CAVITY: No masses or inflammatory changes. No free fluid or peritoneal masses. APPENDIX: Normal. PELVIS: No mass. No free fluid. Normal bladder. Normal size female pelvic organs ABDOMINAL WALL: No masses. No hernias. BONES: Since CT exam 06/15/2018, patient has developed patchy sclerotic metastatic lesions throughout the visualized lower thoracic and lumbar spine, and bony pelvis. No fracture. OTHER: No other significant finding. IMPRESSION: Diffuse bony metastatic lesions. No pathologic fracture Fatty liver. Post cholecystectomy. TECHNICAL DOCUMENTATION: JOB ID: [id number] Quality ID # 436: Final reports with documentation of one or more dose reduction techniques (e.g., Au tomated exposure control, adjustment of the mA and/or kV according to patient size, use of iterative reconstruction technique) 2010 [employer]- All Rights Reserved Reading location - IP/workstation name: [email or web address]
--- NOTE | 2020-01-15 14:16 | RADIOLOGY REPORT (SQ) ---
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 The route of agent administration: Intravenous. ADDITIONAL DRUGS AND DOSES: None. TECHNIQUE: Routine delayed images at 3 hours post radionuclide injection acquired of the bony skelet on including anterior and posterior whole-body projections and additional focused images as needed. LIMITATIONS: None. FINDINGS: BONES: Multiple foci of increased skeletal uptake over the calvarium, scapula 8, sternum, ribs, thoracic and lumbar spine, bony pelvis, right proximal femur, all worrisome for metastatic dise ase. These correlate with CT exam 01/15/2020. KIDNEYS: Symmetric excretion without obstruction. OTHER: No other significant finding. IMPRESSION: Diffuse skeletal metastatic disease COMMENT: Quality measure 147: Current bone scan is compared with any available plain radiographs, p rior bone scans, and CT/MRI. TECHNICAL DOCUMENTATION: JOB ID: [id number] 2010 [employer]- All Rights Reserved Reading location - IP/workstation name: [email or web address]
== END ==
LOC: RAD 09:38
PROVIDERS: ATTEND Physician Assistant Medical
DX: C50.211 Malignant neoplasm of upper-inner quadrant of right female breast (principal)
CPT/HCPCS: 78306; 74177; A9503; Q9969

== ENCOUNTER 2020-01-25 11:04 | Day surgery (SDC) | payer OTHER ==
[2020-01-25 11:40] LABS: HEMATOCRIT 38.5 % (36.0-47.0); HEMOGLOBIN 13.4 g/dL (12.0-15.5); MEAN CORPUSCULAR HEMOGLOBIN 29.9 pg (27.0-33.4); MEAN CORPUSCULAR HGB CONC 34.8 g/dL (32.0-36.0); MEAN CORPUSCULAR VOLUME 86 fl (80-97); PLATELET COUNT 176 10^3/uL (150-450); RED BLOOD COUNT 4.48 10^6/uL (3.72-5.28); RED CELL DISTRIBUTION WIDTH 14.8 % (11.5-14.0); WHITE BLOOD COUNT 5.9 10^3/uL (4.0-10.5)
[2020-01-25 11:52] LABS: INTERNATIONAL RATION (INR) 0.96
[2020-01-25 11:53] LABS: BLOOD UREA NITROGEN 17 mg/dL (7-20); PARTIAL THROMBOPLASTIN TIME 32.7 SEC (23.5-35.8)
[2020-01-25] MEDS ORDERED: MIDAZOLAM 2 MG/2 ML INJ ONE (13:24)
[2020-01-25] MEDS ORDERED: FENTANYL CITRATE INJ/PF 100 MCG/2 ML AMPUL ONE ×2 (13:24→14:15)
[2020-01-25] MEDS ORDERED: ONDANSETRON HCL INJ/PF 4 MG/2 ML SDV ONE (13:25)
--- NOTE | 2020-01-25 15:02 | RADIOLOGY REPORT (SQ) ---
EXAM DESCRIPTION: CT BIOPSY BONE DEEP; CT NEEDLE PLACEMENT IMAGES COMPLETED DATE/TIME: 01/25/2020 2:33 pm REASON FOR STUDY: MALIGNANT NEOPLASM OF UPPER-INNER QUAD OR RIGHT FEMALE BREAST; BREAST CANCER - BON E BIOPSY C50.211 MALIG NEOPLM OF UPPER-INNER QUADRANT OF RIGHT FEMALE COMPARISON: Prior PET-CT TECHNIQUE: CT guided biopsy of the right scapula performed with conscious sedation. CT Fluoroscopy Time: 37.[address] scanners at this facility use dose modulation, iterative reconstruction, and/or weight based d osing when appropriate to reduce radiation dose to as low as reasonably achievable (ALARA). [facility]: Dose Right [facility]: CareDose [facility]: Dose Right [facility]: Teradose 4D [facility]: [employer] RADIATION DOSE: mGy. FINDINGS: After obtaining informed consent and explaining the risks and benefits of conscious sedati on,the patient agreed to the procedure. Prior to the procedure, a time out was performed to verify th e patient's identity and planned procedure. IV sedation was administered and physician direction by the registered nurse using 2.0 milligrams of Versed and 200 micrograms of fentanyl, for conscious sedation. Physiologic monitoring was provided be fore, during, and after sedation. The total sedation time was 60 minutes. Documentation face to face time, the performing proceduralist, spent monitoring the patient: [address] scanning was performed to localize the percutaneous site for the biopsy approach. After sterile skin prep and local lidocaine for skin and deep tissue anesthesia, a coaxial biopsy nee dle was used to obtain multiple cores of tissue. The biopsy tissue was submitted to the lab in forma roselyn. There were no immediate complications. Pathology is pending at the time of dictation. IMPRESSION: CT GUIDED BIOPSY OF THE RIGHT SCAPULA PERFORMED WITHOUT IMMEDIATE COMPLICATION. PATHOLO GY PENDING. COMMENT: Quality ID 145: Final reports for procedures using fluoroscopy that document radiation exp osure indices, or exposure time and number of fluorographic images (if radiation exposure indices are not available) Patient medication list reviewed: Yes- Quality ID# [id number]:Eligible professional attests to documenting i n the medical record they obtained, updated, or reviewed the patient's current medications.. TECHNICAL DOCUMENTATION: JOB ID: [id number] Quality ID# 436: Final reports with documentation of one or more dose reduction techniques (e.g., Aut omated exposure control, adjustment of the mA and/or kV according to patient size, use of iterative r econstruction technique) 2010 [employer]- All Rights Reserved Reading location - IP/workstation name: [email or web address]
--- NOTE | 2020-01-25 15:02 | RADIOLOGY REPORT (SQ) ---
EXAM DESCRIPTION: CT BIOPSY BONE DEEP; CT NEEDLE PLACEMENT IMAGES COMPLETED DATE/TIME: 01/25/2020 2:33 pm REASON FOR STUDY: MALIGNANT NEOPLASM OF UPPER-INNER QUAD OR RIGHT FEMALE BREAST; BREAST CANCER - BON E BIOPSY C50.211 MALIG NEOPLM OF UPPER-INNER QUADRANT OF RIGHT FEMALE COMPARISON: Prior PET-CT TECHNIQUE: CT guided biopsy of the right scapula performed with conscious sedation. CT Fluoroscopy Time: 37.[address] scanners at this facility use dose modulation, iterative reconstruction, and/or weight based d osing when appropriate to reduce radiation dose to as low as reasonably achievable (ALARA). [facility]: Dose Right [facility]: CareDose [facility]: Dose Right [facility]: Teradose 4D [facility]: [employer] RADIATION DOSE: mGy. FINDINGS: After obtaining informed consent and explaining the risks and benefits of conscious sedati on,the patient agreed to the procedure. Prior to the procedure, a time out was performed to verify th e patient's identity and planned procedure. IV sedation was administered and physician direction by the registered nurse using 2.0 milligrams of Versed and 200 micrograms of fentanyl, for conscious sedation. Physiologic monitoring was provided be fore, during, and after sedation. The total sedation time was 60 minutes. Documentation face to face time, the performing proceduralist, spent monitoring the patient: [address]. [address] CT scanning was performed to localize the percutaneous site for the biopsy approach. After sterile skin prep and local lidocaine for skin and deep tissue anesthesia, a coaxial biopsy nee dle was used to obtain multiple cores of tissue. The biopsy tissue was submitted to the lab in forma roselyn. There were no immediate complications. Pathology is pending at the time of dictation. IMPRESSION: CT GUIDED BIOPSY OF THE RIGHT SCAPULA PERFORMED WITHOUT IMMEDIATE COMPLICATION. PATHOLO GY PENDING. COMMENT: Quality ID 145: Final reports for procedures using fluoroscopy that document radiation exp osure indices, or exposure time and number of fluorographic images (if radiation exposure indices are not available) Patient medication list reviewed: Yes- Quality ID# [id number]:Eligible professional attests to documenting i n the medical record they obtained, updated, or reviewed the patient's current medications.. TECHNICAL DOCUMENTATION: JOB ID: [id number] Quality ID# 436: Final reports with documentation of one or more dose reduction techniques (e.g., Aut omated exposure control, adjustment of the mA and/or kV according to patient size, use of iterative r econstruction technique) 2010 [employer]- All Rights Reserved Reading location - IP/workstation name: [email or web address]
[2020-01-25 16:57] VITALS: BP 131/77
== END 2020-01-25 16:50 | disposition home or self-care (01) ==
LOC: RAD 11:04
PROVIDERS: ATTEND Internal Medicine
DX: C50.211 Malignant neoplasm of upper-inner quadrant of right female breast (principal); C79.51 Secondary malignant neoplasm of bone
CPT/HCPCS: 36415; 82962; 84520; 82565; 85027; 85610; 85730; 88342 ×2; 88341 ×2; 88305 ×2; 77012; 20225; J2250; J3010; J2405; 88311

== ENCOUNTER 2020-03-01 17:05 | Emergency (ER) | payer OTHER ==
[2020-03-01 18:17] LABS: ABSOLUTE LYMPHOCYTES (AUTO) 0.6 10^3/uL (0.5-4.7); ABSOLUTE MONOCYTES (AUTO) 0.1 10^3/uL (0.1-1.4); ABSOLUTE NEUT (AUTO) 0.4 10^3/uL (1.7-8.2); BASOPHILS % (AUTO) 0.2 % (0-2); EOSINOPHILS % (AUTO) 2.3 % (0-6); HEMATOCRIT 32.1 % (36.0-47.0); MEAN CORPUSCULAR HEMOGLOBIN 30.7 pg (27.0-33.4); MEAN CORPUSCULAR HGB CONC 34.1 g/dL (32.0-36.0); MEAN CORPUSCULAR VOLUME 90 fl (80-97); MONOCYTES % (AUTO) 6.3 % (3-13); PLATELET COUNT 112 10^3/uL (150-450); RED BLOOD COUNT 3.58 10^6/uL (3.72-5.28); RED CELL DISTRIBUTION WIDTH 15.8 % (11.5-14.0); SEGMENTED NEUTROPHILS % (AUTO) 33.2 % (42-78); TOTAL CELLS COUNTED % (AUTO) 100 %
--- NOTE | 2020-03-01 18:19 | RADIOLOGY REPORT (SQ) ---
EXAM DESCRIPTION: CHEST SINGLE VIEW IMAGES COMPLETED DATE/TIME: 03/01/2020 6:10 pm REASON FOR STUDY: SOB COMPARISON: Chest radiographs 12/27/2019 EXAM PARAMETERS: NUMBER OF VIEWS: One view. TECHNIQUE: Single frontal radiographic view of the chest acquired. RADIATION DOSE: NA LIMITATIONS: None. FINDINGS: LUNGS AND PLEURA: No opacities, masses or pneumothorax. No pleural effusion. MEDIASTINUM AND HILAR STRUCTURES: No masses. Contour normal. HEART AND VASCULAR STRUCTURES: Heart normal in size. Normal vasculature. BONES: No acute findings. HARDWARE: Left chest wall port catheter with tip projecting over the mid superior vena cava. OTHER: Right axillary surgical clips. IMPRESSION: No acute pulmonary findings. TECHNICAL DOCUMENTATION: JOB ID: [id number] 2010 [employer]- All Rights Reserved Reading location - IP/workstation name: [email or web address]
[2020-03-01 18:29] LABS: ALBUMIN 3.5 g/dL (3.5-5.0); ALKALINE PHOSPHATASE 281 U/L (38-126); ANION GAP 8 (5-19); ASPARTATE AMINO TRANSFERASE 74 U/L (14-36); BILIRUBIN,DIRECT 0.2 mg/dL (0.0-0.4); BILIRUBIN,TOTAL 0.5 mg/dL (0.2-1.3); BLOOD UREA NITROGEN 13 mg/dL (7-20); CALCIUM 8.8 mg/dL (8.4-10.2); CARBON DIOXIDE 26 mmol/L (22-30); CHLORIDE 104 mmol/L (98-107); GLUCOSE 173 mg/dL (75-110); POTASSIUM 4.4 mmol/L (3.6-5.0); TOTAL PROTEIN 6.4 g/dL (6.3-8.2)
[2020-03-01 18:49] LABS: WHITE BLOOD COUNT 1.1 10^3/uL (4.0-10.5)
[2020-03-01 18:52] LABS: PLATELET COMMENT DECREASED
[2020-03-01 18:53] LABS: ANISOCYTOSIS SLIGHT; PLATELET CLUMPS PRESENT; POLYCHROMASIA SLIGHT
--- NOTE | 2020-03-01 19:47 | ER Document Report ---
ED General - General Chief Complaint: General Weakness Stated Complaint: WEAKNESS Time Seen by Provider: 03/01/20 18:51 Primary Care Provider: STACY TEE MD [ACTIVE STAFF] - Follow up in 3-5 days NISHA BURTON MD [Primary Care Provider] - Follow up as needed TRAVEL OUTSIDE OF THE [place] IN LAST 30 DAYS: No - HPI Notes: Patient is a 50-year-old female with a past medical history of breast cancer status post mastectomy with metastasis to the bone who presents with weakness. Patient states she developed symptoms on the morning of last . She states she is very fatigued. She had some chest tightness which resolved. Patient lost her sense of taste and smell. No diarrhea, vomiting, nausea. She is taking oral chemotherapy daily. She also gets chemo shots monthly. She had 2 shots on . Patient follows with Dr. Sweeney. She denies any known fevers. Patient called EMS today. They did a rapid Covid and it was positive. - Related Data Allergies/Adverse Reactions: fluoxetine HCl [From Prozac] Allergy (Verified 01/25/20 12:49) Hives gabapentin [Gabapentin] Allergy (Verified 01/25/20 12:49) BURNING IN VEINS Past Medical History - General Information source: Patient - Social History Smoking Status: Former Smoker Chew tobacco use (# tins/day): No Frequency of alcohol use: None Drug Abuse: None Family History: Reviewed & Not Pertinent Patient has homicidal ideation: No - Past Medical History Cardiac Medical History: Denies: Hx Coronary Artery Disease, Hx Heart Attack, Hx Hypertension Pulmonary Medical History: Reports: Hx Asthma - Onset 2000 Denies: Hx Bronchitis, Hx COPD, Hx Pneumonia, Hx Tuberculosis Neurological Medical History: Denies: Hx Cerebrovascular Accident, Hx Seizures Endocrine Medical History: Reports: Hx Diabetes Mellitus Type 2 Renal/ Medical History: Denies: Hx Peritoneal Dialysis GI Medical History: Reports: Hx Gastroesophageal Reflux Disease Musculoskeletal Medical History: Reports Hx Arthritis - OSTEOARTHRITIS, GENERAL Psychiatric Medical History: Denies: Hx Depression Past Surgical History: Reports: Hx Section - 2, Hx Tubal Ligation. Denies: Hx Pacemaker - Immunizations Hx Diphtheria, Pertussis, Tetanus Vaccination: Yes - <10 Hx Pneumococcal Vaccination: 02/06/12 Review of Systems - Review of Systems Notes: CONSTITUTIONAL: No fever or weight loss. Positive for fatigue. SKIN: No rash. HENT: No congestion, ear pain, or sore throat. CARDIOVASCULAR: No chest pain or edema. RESPIRATORY: Dry cough. GASTROINTESTINAL: No abdominal pain, nausea, vomiting, bloody stools or diarrhea. GENITOURINARY: No dysuria. MUSCULOSKELETAL: No joint pain or swelling. NEUROLOGIC: No seizures. No headache, focal weakness or sensory changes. HEMATOLOGIC: No unusual bruising or bleeding. PSYCHIATRIC: No depression or anxiety. Physical Exam - Vital signs Vitals: Temp Resp 98.7 F 12 03/01/20 17:13 03/01/20 17:13 - General General appearance: Appears well In distress: None Notes: VITAL SIGNS: Within normal limits. GENERAL: No acute distress, non-toxic appearance. HEAD: Normal with no signs of head trauma. EYES: Conjunctiva normal, no discharge. EARS: Hearing grossly intact. NOSE: Normal. NECK: Normal range of motion, no tenderness, supple, no lymphadenopathy, No adenopathy, no JVD. CHEST: Clear breath sounds bilaterally. CARDIAC: Regular rate and rhythm. S1 and S2, without murmurs, gallops, or rubs. VASCULAR: No Edema. ABDOMEN: Normal and soft with no tenderness, no masses or pulsatile masses. MUSCULOSKELETAL: Good range of motion of all major joints. Extremities without clubbing, cyanosis or edema. NEUROLOGICAL: Alert and oriented x 3. No focal sensory or strength deficits. Speech normal. Follows commands appropriately. PSYCHIATRIC: Normal Affect, judgement and mood. SKIN: Normal appearance with no rashes or lesions. Course - Re-evaluation Re-evalutation: 03/01/20 19:46 Patient has a very low white blood cell count. This is a side effect of her chemotherapy, likely. She also tested positive for Covid for EMS by rapid test. Patient came in on oxygen because she states it made her feel better. I did take off her oxygen and her O2 stayed at 98 to 99% at rest. She states she is very fatigued and is unable to ambulate due to the weakness. 03/01/20 20:[address] Perez who stated that she should hold her chemotherapy pills until she is seen in the office. She should call them on Tuesday. She did not recommend admission to the hospital for this. I asked Dr. Perez about giving the patient dexamethasone. She did not have a strong opinion on this. I will hold off on dexamethasone as patient has a low WBC and I do not want to worsen this. Data on covid is constantly evolving and I do not want to risk harming the patient with steroids since her O2 saturation are normal on room and she ambulated without difficulty in the ER. CTA was ordered but her IV blew. Multiple attempts were made to restart an IV but were unsuccessful. Patient stated she did not want anymore attempts. I did explain to her that we would not be able to rule out PE without contrast and IV and she verbalized understanding. CT showed patchy right upper lobe pneumonia. I discussed with the hospitalist who reviewed the patient's chart. He did not think that she needs to be admitted for this especially because she is 99% on room air. He recommend that I start her on Levaquin. Patient is very agreeable to this. She states she does not want to stay in the hospital and would rather go home because she is feeling much better. Patient was given strict return precautions. She was told to stop her chemotherapy pill until she calls the oncologist on Tuesday. I also rechecked a Covid test on her. She will be called with the results. Patient was given strict return precautions. 03/02/20 01:34 - Vital Signs Vital signs: Temp Pulse Resp BP Pulse Ox 98.7 F 15 138/79 H 99 03/01/20 23:41 03/01/20 23:41 03/01/20 23:41 03/01/20 23:41 - Laboratory Results Result Diagrams: 03/01/20 17:54 03/01/20 17:54 Laboratory Results Interpreted: 03/01/20 03/01/20 17:54 17:54 WBC 1.1 L* RBC 3.58 L Hgb 11.0 L Hct 32.1 L RDW 15.8 H Plt Count 112 L Lymph % (Auto) 58.0 H Absolute Neuts (auto) 0.4 L Seg Neutrophils % 33.2 L Est GFR (MDRD) Non-Af 53 L Glucose 173 H AST 74 H ALT 61 H Alkaline Phosphatase 281 H Critical Laboratory Results Reviewed: Yes Attending or Supervising Physician who Reviewed Labs: ALEXEI AGUILAR - Radiology Results Critical Radiology Results Reviewed: No Critical Results - EKG Interpretation by Me EKG shows normal: Sinus rhythm Rate: Normal Rhythm: NSR When compared to previous EKG there are: No significant change Additional EKG results interpreted by me: 03/01/20 20:47 His rhythm at a rate of 63. QTc 426. No acute ST changes. EKG is similar to previous. Discharge - Discharge Clinical Impression: COVID-19, Leukopenia due to antineoplastic chemotherapy Pneumonia Qualifiers: Pneumonia type: due to unspecified organism Laterality: right Lung location: upper lobe of lung Qualified Code(s): J18.9 - Pneumonia, unspecified organism Condition: Stable Disposition: HOME, SELF-CARE Instructions: COVID-19 Guidance for Persons Under Investigation, Pneumonia ([facility]) Additional Instructions: You have a positive test for COVID-19. You must self isolate. I repeated a Covid test and you will be called with the result. You also have evidence of a pneumonia. You will be placed on antibiotics. You have a low white blood cell count today. Please stop your chemotherapy pill until you call the oncology office on Tuesday. Return to the ER immediately for any fever, chills, vomiting, shortness of breath, any other concerning symptoms. Prescriptions: Levofloxacin [Levaquin 750 mg Tablet] 750 mg PO DAILY #5 tablet Referrals: NISHA BURTON MD [Primary Care Provider] - Follow up as needed STACY TEE MD [ACTIVE STAFF] - Follow up in 3-5 days
[2020-03-01 20:18] LABS: APPEARANCE,URINE CLEAR; BILIRUBIN,URINE NEGATIVE (NEGATIVE); COLOR,URINE YELLOW; GLUCOSE, URINE NEGATIVE (NEGATIVE); KETONES,URINE NEGATIVE (NEGATIVE); LEUKOCYTE ESTERASE,URINE NEGATIVE (NEGATIVE); NITRITE,URINE NEGATIVE (NEGATIVE); PROTEIN,URINE NEGATIVE (NEGATIVE); URINE SPECIFIC GRAVITY 1.013; UROBILINOGEN,URINE NEGATIVE mg/dL (<2.0)
[2020-03-01] MEDS ORDERED: NORMAL SALINE 1000 ML 1,000 ML IV ONE (20:22)
--- NOTE | 2020-03-01 23:00 | RADIOLOGY REPORT (SQ) ---
CLINICAL INDICATION: sob, covid, cancer pt. . TECHNIQUE: Contrast-enhanced spiral axial CT imaging was obtained of the chest with multiplanar reconstructions. This exam was performed according to our departmental dose-optimization program, which includes automated exposure control, adjustment of the mA and/or kV according to patient size and/or use of iterative reconstruction techniques. COMPARISON: None available. CORRELATION: None. FINDINGS: The heart is top normal. No pericardial effusion. No bulky mediastinal adenopathy. Postsurgical change from right mastectomy. Dilute contrast opacification The lungs demonstrate mild patchy alveolar space disease right upper lobe this is unknown chronicity. No effusion. No pneumothorax.. Visualized abdominal contents demonstrate hepatic steatosis. The spleen is enlarged at 15.6 cm anteroposterior. Old granulomatous disease.. Visualized bones demonstrate heterogeneity with sclerotic and lytic abnormalities, presumed metastatic disease from breast carcinoma.. Subacute posttraumatic change IMPRESSION: Minimal patchy alveolar space disease right upper lobe, unknown chronicity. No acute intrathoracic process is seen. Osseous metastatic disease (presumed).
[2020-03-01] MEDS ORDERED: LEVOFLOXACIN 750 MG TABLET PO ONE (23:26)
[2020-03-01 23:50] VITALS: BP 138/79
--- NOTE | 2020-03-03 00:21 | EKG REPORT ---
SEVERITY:- NORMAL ECG - SINUS RHYTHM : Confirmed by: Janna Burdick 03-Mar-2020 00:21:02
[2020-03-03 14:55] LABS: PATH REVIEW PATHOLOGIST REVIEWED
== END 2020-03-01 23:50 | disposition home or self-care (01) ==
LOC: ER 17:05
DX: U07.1 COVID-19 (principal); J18.9 Pneumonia, unspecified organism; C79.51 Secondary malignant neoplasm of bone; D70.1 Agranulocytosis secondary to cancer chemotherapy; T45.1X5A Adverse effect of antineoplastic and immunosuppressive drugs, initial encounter; R53.1 Weakness; J45.909 Unspecified asthma, uncomplicated; E11.9 Type 2 diabetes mellitus without complications; Z79.899 Other long term (current) drug therapy; Z87.891 Personal history of nicotine dependence; Z88.8 Allergy status to other drugs, medicaments and biological substances; Z88.6 Allergy status to analgesic agent
CPT/HCPCS: 93005; 99285; 96360; 36415; 85025; 87635; 80053; 81001; 84484; 71045; 71260; 93010; J7030; C9803

== ENCOUNTER 2020-03-05 00:23 | Emergency (ER) | payer OTHER ==
[2020-03-05] MEDS ORDERED: NORMAL SALINE 1000 ML 1,000 ML IV ONE (02:38)
[2020-03-05] MEDS ORDERED: MECLIZINE HCL 25 MG TABLET PO ONE (02:38)
[2020-03-05] MEDS ORDERED: IBUPROFEN 600 MG TABLET PO ONE (02:39)
[2020-03-05 03:51] LABS: HEMATOCRIT 33.3 % (36.0-47.0); HEMOGLOBIN 11.4 g/dL (12.0-15.5); MEAN CORPUSCULAR HEMOGLOBIN 30.4 pg (27.0-33.4); MEAN CORPUSCULAR HGB CONC 34.3 g/dL (32.0-36.0); MEAN CORPUSCULAR VOLUME 89 fl (80-97); PLATELET COUNT 126 10^3/uL (150-450); RED BLOOD COUNT 3.75 10^6/uL (3.72-5.28); RED CELL DISTRIBUTION WIDTH 17.4 % (11.5-14.0)
[2020-03-05 03:57] LABS: INTERNATIONAL RATION (INR) 1.05; PROTHROMBIN TIME 13.9 SEC (11.4-15.4)
[2020-03-05 03:58] LABS: PARTIAL THROMBOPLASTIN TIME 33.1 SEC (23.5-35.8)
[2020-03-05 04:11] LABS: ALBUMIN 3.9 g/dL (3.5-5.0); ALKALINE PHOSPHATASE 285 U/L (38-126); ANION GAP 7 (5-19); ASPARTATE AMINO TRANSFERASE 69 U/L (14-36); BILIRUBIN,DIRECT 0.2 mg/dL (0.0-0.4); BILIRUBIN,TOTAL 0.7 mg/dL (0.2-1.3); BLOOD UREA NITROGEN 11 mg/dL (7-20); CALCIUM 8.7 mg/dL (8.4-10.2); CARBON DIOXIDE 28 mmol/L (22-30); CHLORIDE 102 mmol/L (98-107); CREATINE KINASE 47 U/L (30-135); GLUCOSE 94 mg/dL (75-110); PHOSPHORUS 3.3 mg/dL (2.5-4.5); POTASSIUM 4.6 mmol/L (3.6-5.0); TOTAL PROTEIN 7.3 g/dL (6.3-8.2)
[2020-03-05 04:29] LABS: ABSOLUTE MONOCYTES # (MANUAL) 0.1 10^3/uL (0.1-1.4); BASOPHILS % (MANUAL) 0 % (0-2); EOSINOPHILS % (MANUAL) 2 % (0-6); LYMPHOCYTES % (MANUAL) 70 % (13-45); MONOCYTES % (MANUAL) 4 % (3-13); SEGMENTED NEUTROPHILS % (MAN) 24 % (42-78); TOTAL CELLS COUNTED 50
[2020-03-05 04:30] LABS: ANISOCYTOSIS 1+; PLATELET COMMENT ADEQUATE
[2020-03-05 04:36] LABS: WHITE BLOOD COUNT 1.4 10^3/uL (4.0-10.5)
--- NOTE | 2020-03-05 05:05 | ER Document Report ---
ED General - General Chief Complaint: Fever Stated Complaint: FEVER BLURRED VISION Primary Care Provider: STACY TEE MD [ACTIVE STAFF] - Follow up in 1 week NISHA BURTON MD [Primary Care Provider] - Follow up in 1 week Notes: 50-year-old female with stage IV breast cancer presents on active chemo with persistent weakness for the past several days after being diagnosed with COVID- 19 approximately 4 days ago. Patient says that she does not feel any worse but she is not improved which concerned her. Patient denies any focal symptoms just feels generally tired and has not been able to do her normal activities. Patient also says that she saw brief floaters in one of her eyes prior to arrival which is now resolved. Patient denies any current visual symptoms, blurry vision (triage complaint says blurry vision which is erroneous), eye pain, headache, neck pain, neck stiffness, chest pain, trouble breathing, abdominal pain, vomiting, diarrhea, black stools, bloody stools, syncope, urinary symptoms TRAVEL OUTSIDE OF THE [place] IN LAST 30 DAYS: No - Related Data Allergies/Adverse Reactions: fluoxetine HCl [From Prozac] Allergy (Verified 03/05/20 00:42) Hives gabapentin [Gabapentin] Allergy (Verified 03/05/20 00:42) BURNING IN VEINS Past Medical History - General Information source: Patient, [facility] Records - Social History Smoking Status: Former Smoker Frequency of alcohol use: None Drug Abuse: None Family History: Reviewed & Not Pertinent - Past Medical History Cardiac Medical History: Denies: Hx Coronary Artery Disease, Hx Heart Attack, Hx Hypertension Pulmonary Medical History: Reports: Hx Asthma - Onset 2000 Denies: Hx Bronchitis, Hx COPD, Hx Pneumonia, Hx Tuberculosis Neurological Medical History: Denies: Hx Cerebrovascular Accident, Hx Seizures Endocrine Medical History: Reports: Hx Diabetes Mellitus Type 2 Renal/ Medical History: Denies: Hx Peritoneal Dialysis GI Medical History: Reports: Hx Gastroesophageal Reflux Disease Musculoskeletal Medical History: Reports Hx Arthritis - OSTEOARTHRITIS, GENERAL Psychiatric Medical History: Denies: Hx Depression Past Surgical History: Reports: Hx Section - 2, Hx Tubal Ligation. Denies: Hx Pacemaker - Immunizations Hx Diphtheria, Pertussis, Tetanus Vaccination: Yes - <10 Hx Pneumococcal Vaccination: 02/06/12 Review of Systems - Review of Systems Notes: REVIEW OF SYSTEMS: CONSTITUTIONAL : + fever, chills, or sweats. EENT: Denies recent cold/sinus symptoms, denies throat pain CARDIOVASCULAR: Denies chest pain, [place] RESPIRATORY: + cough, - shortness of breath. GASTROINTESTINAL: Denies abdominal pain, nausea/vomiting. GENITOURINARY: Denies difficulty urinating, painful urination. FEMALE GENITOURINARY: Denies abnormal vaginal bleeding, vaginal discharge. MUSCULOSKELETAL: Denies neck pain, back pain. SKIN: Denies rash or skin lesions. HEMATOLOGIC : Denies easy bruising or bleeding. LYMPHATIC: Denies swollen, enlarged glands. NEUROLOGICAL: Denies headache, denies change in gait. PSYCHIATRIC: Denies anxiety or stress or depression. Physical Exam - Vital signs Vitals: Temp Pulse Resp BP Pulse Ox 99.1 F 86 16 134/91 H 94 03/05/20 00:49 03/05/20 00:49 03/05/20 00:49 03/05/20 00:49 03/05/20 00:49 - Notes Notes: PHYSICAL EXAMINATION: GENERAL: Comfortable appearing middle-aged woman lying in stretcher no acute distress HEAD: Atraumatic, normocephalic. EYES: Pupils equal round and appropriate constriction, sclera anicteric, conjunctiva are normal. ENT: nares patent, mildly dry mucous membranes. NECK: Normal range of motion, supple without lymphadenopathy LUNGS: Breath sounds clear to auscultation bilaterally and equal. No wheezes rales or rhonchi. Normal respiratory rate and effort, speaking in full sentences, no accessory muscle use HEART: Regular rate and rhythm without murmurs ABDOMEN: Soft, nontender, no guarding, no masses, no CVAT EXTREMITIES: Normal range of motion, no pitting or edema. No cyanosis. NEUROLOGICAL: Awake, alert, conversing appropriately, moves all extremities spontaneously. PSYCH: Normal mood, normal affect. SKIN: Warm, Dry, normal turgor, no rashes or lesions noted. Course - Re-evaluation Re-evalutation: 03/05/20 05:09 Patient with continuation of generalized malaise and fatigue since being diagnosed with Covid several days ago. Patient was also on antibiotics for possible equivocal chest x-ray finding on prior x-ray. Patient mildly neutropenic but no fever thus not meeting criteria for neutropenic fever and symptoms are highly consistent with symptoms of COVID-19. I obtained labs to rule out electrolyte abnormalities, symptomatic anemia, occult blood loss, atypical ACS which showed no emergent findings. Patient's WBC count is improving, mild thrombocytopenia with no current indication for intervention. Patient hyperglycemic without any elevated anion gap or signs of DKA or honk which may have caused mild dehydration contributing to patient's symptoms. Gave patient symptomatic treatment and IV fluids which she says have improved her symptoms. No indication to rule out PE at this time as patient has no PE s ymptoms. I spoke to patient about duration of Covid symptoms and importance of following up closely with her PCP and oncologist which she was in agreement with. Patient denied having any other questions or concerns and is in agreement with going home. Patient given extensive return to ED precautions which she demonstrated understanding of. Patient had brief floaters but her vision has now returned to normal with no ophthalmologic symptoms. This is not consistent with any emergent ophthalmologic issues that would necessitate immediate investigation during active COVID-19 infection in this pandemic. The patient was evaluated during the global COVID-19 pandemic and that diagnosis was suspected/considered upon their initial presentation. Their evaluation, treatment and testing was consistent with current guidelines for patients who present with complaints or symptoms that may be related to COVID-19. - Vital Signs Vital signs: Temp Pulse Resp BP Pulse Ox 98.8 F 78 16 133/80 H 98 03/05/20 05:32 03/05/20 05:32 03/05/20 00:49 03/05/20 05:32 03/05/20 05:32 - Laboratory Results Result Diagrams: 03/05/20 03:15 03/05/20 03:15 Laboratory Results Interpreted: 03/05/20 03/05/20 03:15 03:15 WBC 1.4 L* Hgb 11.4 L Hct 33.3 L RDW 17.4 H Plt Count 126 L Seg Neuts % (Manual) 24 L Lymphocytes % (Manual) 70 H Abs Neuts (Manual) 0.3 L Est GFR (MDRD) Non-Af 56 L AST 69 H ALT 53 H Alkaline Phosphatase 285 H Critical Laboratory Results Reviewed: Yes Attending or Supervising Physician who Reviewed Labs: BRENDA ANDERSON - Radiology Results Critical Radiology Results Reviewed: No Critical Results - EKG Interpretation by Me Additional EKG results interpreted by me: 03/05/20 06:14 Sinus rhythm, no significant ST elevations or depressions, no significant T wave abnormalities Discharge - Discharge Clinical Impression: COVID-19 virus infection, Visual disturbance Disposition: HOME, SELF-CARE Instructions: COVID-19 Guidance for Persons Under Investigation Additional Instructions: Patient was provided with discharge information including: As a person under investigation for Covid 19, the [facility], division of public health advises you to adhere to the following guidance until your test results are reported to you. If your test result is positive, you will receive additional information from your provider and your local health department at that time. Remain at home until you are cleared by the health provider or public health authorities. Keep a log of visitors to your home, notify any visitors to your home of your isolation status. If you plan to move to a new address or leave the county, notify the local health department in your County. Call your doctor or seek care if you have an urgent medical need. Before seeking medical care, call ahead to get instructions from the provider before arriving at the medical office clinic or hospital. Notify them that you are being tested for the virus that causes Covid 19 so that arrangements can be made, as necessary, to prevent transmission to others in the healthcare setting. Next, notify the local health department in your county. If a medical emergency arises and you need to call 911, inform the first responders that you are being tested for the virus that causes Covid 19. Next, notify the local health department in your county. Follow-up with your primary doctor and oncologist remotely within 1 week. Follow-up with the client consultant when your symptoms have resolved and you are symptom-free for at least 72 hours. If you have any worsening symptoms, chest pain, trouble breathing, dizziness, fainting, black or bloody stool, vomiting, blurry vision, loss of vision, or any other worsening or alarming symptoms return to the emergency department immediately. Referrals: NISHA BURTON MD [Primary Care Provider] - Follow up in 1 week STACY TEE MD [ACTIVE STAFF] - Follow up in 1 week
[2020-03-05 05:32] VITALS: BP 133/80
--- NOTE | 2020-03-05 10:45 | EKG REPORT ---
SEVERITY:- NORMAL ECG - SINUS RHYTHM : Confirmed by: Disha Leblanc MD 05-Mar-2020 10:44:30
== END 2020-03-05 05:44 | disposition home or self-care (01) ==
LOC: ER 00:23
DX: U07.1 COVID-19 (principal); R50.9 Fever, unspecified; H53.8 Other visual disturbances; R53.81 Other malaise; C50.919 Malignant neoplasm of unspecified site of unspecified female breast; Z79.899 Other long term (current) drug therapy
CPT/HCPCS: 99284; 36415; 82550; 83735; 84100; 85025; 85610; 85730; 80053; 84484; 93005; 93010; J7030